=== PATIENT | female | born 1950 | race Caucasian/White ===

== ENCOUNTER 2025-03-22 21:34 | Inpatient (IN) | payer MEDICARE, MEDICAID, SELFPAY ==
[2025-03-22 21:39] VITALS: BP 107/55; PULSE 80; RESP 32; O2SAT 80
[2025-03-22 21:40] VITALS: PULSE 62; RESP 18; O2SAT 92
--- NOTE | 2025-03-22 21:45 | PD.EDRME ---
Rapid Medical Screening Exam RME Arrival date/time: 03/22/25 21:34 Chief Complaint: Syncope / Near Syncope Time Seen by Provider: 03/22/25 21:47 Vital signs: Vital Signs Pulse Rate 80 03/22/25 21:39 Respiratory Rate 32 H 03/22/25 21:39 Blood Pressure 107/55 L 03/22/25 21:39 Pulse Oximetry (%) 80 L 03/22/25 21:39 Oxygen Delivery Method Nasal Cannula 03/22/25 21:39 Oxygen Flow Rate 6 03/22/25 21:39 Vital signs reviewed by provider: No RME Narrative: 74 yo female with HX HTN, DM, Stroke, Dementia, CKD, difficulty walking, MDD, and muscle weakness presenting by EMS from [facility]. EMS reports given: GCS 14, hypotensive, syncope, and vomiting blood. Patient cool and diaphoretic. Coffee ground emesis noted on floor. O2 sats 92% on 6L O2, blood sugar 142, BP 88/50. Earlier today complained of nausea, vomiting, and lower abdominal pain. LKWT 2100. I have greeted and performed a focused initial assessment of this patient. A comprehensive ED assessment and evaluation of the patient, analysis of all test results, and completion of the medical decision making process will be conducted by additional ED providers.
--- NOTE | 2025-03-22 21:58 | EKG_ITS ---
[facility] Test Date: 2025-03-22 Pat Name: ABIGAIL ORTIZ Department: Room: - Gender: Female Mobile Pet Groomer: : 1950 Requested By: Reena Connors Order Number: [id number] Reading MD: Reena Connors Measurements Intervals [place] Rate: 91 P: 80 NH: 187 QRS: 24 QRSD: 90 T: 45 QT: 389 QTc: 479 Interpretive Statements SINUS RHYTHM LOW QRS VOLTAGE IN PRECORDIAL LEADS [QRS DEFLECTION < 1.0 mV IN CHEST LEADS] ANTERIOR MYOCARDIAL INFARCTION , OF INDETERMINATE AGE [40+ ms Q WAVE AND/OR ST/T ABNORMALITY IN V3/V4] MODERATE T-WAVE ABNORMALITY, CONSIDER LATERAL ISCHEMIA [-0.1+ mV T-WAVE IN I/aVL/V5/V6] Compared to ECG 09/25/2021 11:17:55 T-wave abnormality now present Possible ischemia now present Myocardial infarct finding still present /store/S0/[id number]/[id number]
--- NOTE | 2025-03-22 22:00 | PC.NURSE ---
BIBA FOR HYPOTENSION AND VOMITING, PT WAS AT SNF USING THE RESTROOM WHEN SHE HAD 1 EPISODE OF HEMATEMSIS AND BECAME DIAPHORETIC, COOL, AND CLAMMY. PT HAD MULTIPLE SYNCOPAL EPISODES ON TOILET. STAFF HELD PATIENT UP SO NO FALL OR TRAUMA NOTED. PER EMS WHEN ARRIVED ON SCENE PATIENT WAS NON-RESPONSIVE BUT STARTING TO COME AROUND ANY HYPOTENSIVE IN THE 80'S. PT ARRIVED ALERT AND ORIENTED TO NAME, , AND PLACE. PT STATES THAT SHE DOES NOT WANT ANY BLOOD TO BE GIVEN, HOWEVER WILL TAKE AN OXIMASK. UPON ARRIVAL TO ER PATIENTS O2 SAT 78-82% 6L, OXIMASK WAS APPLIED HOWEVER PATIENT WOULD NOT KEEP IT ON. PT C/O RIGHT LEG AND KNEE PAIN, MD MADE AWARE. PT WAITNG TO BE SEEN BY ER MD AND RN WILL CONTINUE WITH PLAN OF CARE.
--- NOTE | 2025-03-22 22:03 | PD.EDSYNC ---
ED Syncope RME/HPI General Chief Complaint: Syncope / Near Syncope Stated Complaint: SHOCK Time Seen by Provider: 03/22/25 21:47 Source: EMS Arrival date/time: 03/22/25 21:34 Mode of arrival: EMS Limitations: no limitations RME / HPI RME / HPI narrative: DR. LINDSAY?S MAIN ED EVALUATION: 74 yo female with HX HTN, DM, Stroke, Dementia, CKD, difficulty walking, MDD, and muscle weakness presenting by EMS from [facility], brought in by EMS by report the patient was sitting on the toilet and had vomited blood on EMS arrival the patient was hypotensive and? Syncope. They show coffee ground on the floor by the toilet. They report patient was cool and diaphoretic. Patient has chronic low back pain. Vitals prior to lab arrival include thank you for trying: Thank you for anything prior to that give her any fluids O2 sats 92% on 6L O2, blood sugar 142, BP 88/50. Earlier today complained of nausea, vomiting, and lower abdominal pain. LKWT 2100. Parent states prior to arrival the patient was given 100 cc normal saline. Review of the record shows shelter paperwork noted that the patient was afebrile at 97.9. Her blood pressure was 98/60. PMH: Anemia of chronic disease, chronic renal sufficiency, GERD with esophagitis, hypertension, CAD, bladder cancer, hyperlipidemia, high cholesterol, DNR comfort care only, no artificial means of nutrition. No any surgeries. 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, kidney stone, so we need to know if she is on aspirin right - PSH: -Social history: Lives in a shelter -Current medications: Related Data Home Medications ?Medication ?Instructions ?Recorded ?Confirmed amlodipine 10 mg tablet 10 mg PO QDAY 01/08/21 02/17/21 aspirin 81 mg tablet,delayed 81 mg PO QDAY 01/08/21 02/17/21 release cholecalciferol (vitamin D3) 25 1,000 unit PO QDAY 01/08/21 02/17/21 mcg (1,000 unit) capsule (Vitamin D3) citalopram 40 mg tablet 40 mg PO QDAY 01/08/21 02/17/21 cyanocobalamin (vitamin B-12) 1,000 mcg PO QDAY 01/08/21 02/17/21 1,000 mcg tablet (Vitamin B-12) ferrous sulfate 325 mg (65 mg 325 mg PO QDAY 01/08/21 02/17/21 iron) tablet hydralazine 50 mg tablet 50 mg PO QID 01/08/21 02/17/21 levothyroxine 175 mcg tablet 175 mcg PO QDAY 01/08/21 02/17/21 quetiapine 25 mg tablet 25 mg PO QPM 01/08/21 02/17/21 acetaminophen 325 mg tablet 650 mg PO Q6H PRN Pain 02/17/21 02/17/21 (Tylenol) bisacodyl 10 mg rectal suppository 10 mg WV Q72H PRN Constipation 02/17/21 02/17/21 (Dulcolax (bisacodyl)) magnesium hydroxide 400 mg/5 mL 30 ml PO Q72H PRN Constipation 02/17/21 02/17/21 oral suspension (Milk of Magnesia) sodium phosphates 19 gram-7 118 ml WV Q72H PRN Constipation 02/17/21 02/17/21 gram/118 mL enema (Fleet Enema) Previous Rx's ?Medication ?Instructions ?Recorded atorvastatin 80 mg tablet 80 mg PO QPM #30 tabs 01/12/21 levetiracetam 750 mg tablet 1,500 mg (2 x 750 mg) PO BID 01/12/21 (Keppra) seizure disorder #30 tabs phenytoin sodium extended 200 mg 200 mg PO BID #60 caps 02/20/21 capsule cephalexin 500 mg capsule 500 mg PO QID #28 caps 04/16/24 Allergies Allergy/AdvReac Type Severity Reaction Status Date / Time cashew nut Allergy Unknown Hives Verified 07/20/20 08:28 quinine Allergy Unknown Verified 07/20/20 08:28 Review of Systems Review of Systems Systems Reviewed: All systems reviewed, normal except as documented Narrative Review of Systems: Gen: No fever GI: Nausea, coffee ground vomiting, abdominal pain Neuro: Syncope Past Medical History Past Medical History NEUROLOGIC: Positive Neurological Disorders, Cerebrovascular Accident, Dementia and Seizures CARDIAC: Positive Cardiac Disorders, Coronary Artery Disease, Hypercholesterolemia and Hypertension RESPIRATORY: Positive Pneumonia GASTROINTESTINAL: Positive Gastrointestinal Disorders, Gastrointestinal Bleed, Gastroesophageal Reflux Disease and Obesity GENITOURINARY: Positive Genitourinary Disorders, Chronic Kidney Disease and Renal Disease REPRODUCTIVE: Positive Previous Pregnancies; Negative Endometriosis ENT: Positive Cataracts ENDOCRINE: Positive Endocrine Disorders, Diabetes Mellitus Type 2, Hypoglycemia and Hypothyroidism HEMATOLOGIC: Positive Blood Disorders and Anemia PSYCHO/SOCIAL: Positive Depression and Anxiety OTHER HISTORY: Positive Hospitalization, Falls, Blood Transfusions, Chemotherapy, Chicken Pox, Measles, Mumps and Cancer Family History FAMILY HISTORY: Positive Family Cancer Surgical History SURGICAL: Positive Coronary Stent and Ear Surgery Social History SMOKING STATUS: Former smoker ED Exam Narrative Physical exam: GEN. APPEARANCE: The patient is alert awake oriented X-2 in mild distress, lying down comfortably, appears chronically ill. Patient has good eye contact. Patient is cooperative. VITALS: All vitals were reviewed and the pulse ox is 80% 6L on room air which is normal according to my interpretation. HEENT: Normocephalic, atraumatic. Pupils are equal and reactive. Oral mucosa is dry ok. Patent Nares NECK: Supple CHEST: Symmetrical, atraumatic, and with equal expansion , Nontender on palpation no deformity and no crepitus. CARDIOVASCULAR: Heart regular rhythm LUNGS: Clear to auscultation bilaterally with symmetrical chest rise. No laboring tachypnea or wheezing. ABDOMEN: Soft, flat, nontender to palpation, no guarding or rebound tenderness. There are no abnormal masses palpated. EXTREMITIES: Nontender. Mild pedal edema. No cyanosis. Patient is able to move all 4 extremities well, with full ROM and good CSM. SKIN: Warm and dry, no jaundice or rashes noted. MUSCULOSKELETAL: No lumbar or midline bony tenderness. Check. Patella midline, no TTP, no ecchimosis, no swelling. NEURO: Patient is MOBLEY x 4, talking full sentences there is no focal neurologic deficits noted. Normal sensation to soft touch. PSYCHIATRIC: Patient is in normal mood and affect, cooperative, no SI or HI or hallucinations. General Limitations: Present no limitations Course Quality Measures comfort care/end of life Orders Category Date Time Status Admit to Inpatient Status Routine Admission 03/23/25 05:36 Active Patient Condition Routine Admission 03/23/25 05:34 Ordered COVID-19 Screening Questionnaire NOW Care 03/23/25 01:16 Active COVID-19 Screening Questionnaire NOW Care 03/23/25 05:36 Active Zig Zag Stitcher STAT Care 03/22/25 21:58 Active Decision to Admit X1 Care 03/23/25 01:16 Completed Decision to Admit X1 Care 03/23/25 05:35 Active EKG (ED ONLY) *Do not use* NOW Care 03/22/25 21:59 Completed NPO NOW Care 03/23/25 05:38 Active Notify provider NEEDED Care 03/23/25 05:34 Active Nurse Swallow Screen X1 Care 03/23/25 05:42 Active Sequential Compression Device QSHIFT Care 03/23/25 05:37 Active Consult to Gastroenterology Routine Cons 03/23/25 05:43 Ordered Referral Registered Dietitian Routine Cons 03/23/25 05:45 Active Diet NPO (NOW) Diet 03/23/25 05:38 Active EKG (ED Only) Stat Exams 03/22/25 21:58 Draft XR femur LT 2V Stat Exams 03/22/25 22:38 Completed XR knee limited LT 2V Stat Exams 03/22/25 22:38 Completed CBC AM DRAW Lab 03/24/25 05:00 Ordered CBC AM DRAW Lab 03/25/25 05:00 Ordered CBC AM DRAW Lab 03/26/25 05:00 Ordered CBC Stat Lab 03/22/25 22:16 Completed CBC Stat Lab 03/23/25 05:39 Ordered Comprehensive Metabolic Panel AM DRAW Lab 03/24/25 05:00 Ordered Comprehensive Metabolic Panel AM DRAW Lab 03/25/25 05:00 Ordered Comprehensive Metabolic Panel AM DRAW Lab 03/26/25 05:00 Ordered Comprehensive Metabolic Panel Stat Lab 03/22/25 22:16 Completed Comprehensive Metabolic Panel Stat Lab 03/23/25 05:40 Ordered Magnesium AM DRAW Lab 03/24/25 05:00 Ordered Magnesium AM DRAW Lab 03/25/25 05:00 Ordered Magnesium AM DRAW Lab 03/26/25 05:00 Ordered Magnesium Stat Lab 03/23/25 05:40 Ordered Partial Thromboplastin Time Stat Lab 03/22/25 22:16 Completed Phosphorous AM DRAW Lab 03/24/25 05:00 Ordered Phosphorous AM DRAW Lab 03/25/25 05:00 Ordered Phosphorous AM DRAW Lab 03/26/25 05:00 Ordered Phosphorous Stat Lab 03/23/25 05:40 Ordered Prothrombin Time with INR Stat Lab 03/22/25 22:16 Completed Troponin I Stat Lab 03/22/25 22:16 Completed Troponin I Stat Lab 03/23/25 02:02 Completed Acetaminophen Tab [Tylenol Tab] Med 03/23/25 05:37 Active 650 mg PO Q6H PRN LORazepam [Ativan Inj] Med 03/22/25 22:29 Discontinued 1 mg IVP X1 ONE Morphine Inj Med 03/22/25 22:00 Discontinued 4 mg IV X1 ONE Ondansetron Inj [Zofran Inj] Med 03/22/25 22:01 Discontinued 4 mg IV X1 ONE Pantoprazole Inj [Protonix Inj] Med 03/23/25 09:00 Ordered 40 mg IVP BID Pantoprazole Inj [Protonix Inj] Med 03/23/25 03:55 Discontinued 40 mg IVP X1 ONE Senna [Senokot] Med 03/23/25 05:37 Active 1 tab PO QDAY PRN Sodium Chloride 0.9% 500 ml [Ns] 500 ml Med 03/22/25 21:58 Discontinued IV 999 mls/hr oxyCODONE/APAP 5/325 [Percocet 5/325] Med 03/23/25 05:37 Active 1 tab PO Q6H PRN Code Status Routine Oth 03/23/25 05:34 Ordered Oxygen Delivery PRN RT 03/23/25 05:37 Active Reevaluation(s) Reevaluation #1: Knee exam s/p morphine, patient resting comfortable on 6L of O2. Time: 01:08 Vital Signs Vital signs: Vital Signs Pulse Rate 80 03/22/25 21:39 Respiratory Rate 32 H 03/22/25 21:39 Blood Pressure 107/55 L 03/22/25 21:39 Pulse Oximetry (%) 80 L 03/22/25 21:39 Oxygen Delivery Method Nasal Cannula 03/22/25 21:39 Oxygen Flow Rate 6 03/22/25 21:39 Procedures -ED EKG Interpretation #1: Date of EK03/22/25 Time of EK:16 Rate: 91 Interpretation: Interpreted by me Additional EKG comment: Sinus rhythm 91 BPM, low voltage, old anterior infarction, No ST elevation, QTc normal similar to last EKG from 04/17/24. Syncope MDM Narrative MDM Narrative:: Scribe Attestation: Dalia Hamilton, am scribing for and in the presence of Dr. Lindsay. Provider Notation: Although this document has been carefully reviewed, there may still be some phonetic and other typographical errors. These errors are purely grammatical due to imperfections in the software program and should not be construed in any way to compromise the substance of the patient's medical care during this visit. Differential diagnosis includes upper GI bleed, lower GI bleed, dehydration, electrolyte abnormality, aspiration pneumonia, sepsis. 74-year-old lady with multiple medical problems presenting to the emergency department with witnessed coffee-ground emesis with syncopal episodes while sitting on the toilet. EMS prior to arrival the patient was hypotensive. She is immediately placed in a bed and repeat vitals show that she has a BP of 115/64 with heart rate of 90. Patient is a DNR comfort care only and is pretty adamant that she does not want any blood transfusions. Plan will treat with IV fluids, pain control, and likely will need admission for pain and GI bleed. The patient meets sepsis criteria at this time secondary to her respiratory rate being 32 and slightly altered per EMS. 0533: Spoke with patient's son. Son wants further work-up to be performed, as well as further invasive studies as needed. 0600: Care signed out to the [facility] provider. Past medical, surgical, social and family history reviewed. Vitals and home medications reviewed. Results and treatment plan discussed. They will assume the care of the patient at this time and will follow the patient through admission for further work-up. Patient data External records reviewed:: [facility] previous records (Prior ED records from 04/16/24 reviewed. Patient was seen for Acute dehydration.), EMS form and [facility] records Clinical information provided by:: EMS Social determinants that could affect healthcare access:: housing ([facility]) Patient has the following chronic illnesses:: Cerebrovascular Accident, Dementia, Seizures, Coronary Artery Disease, Hypercholesterolemia, Hypertension, Gastrointestinal Bleed, Gastroesophageal Reflux Disease, Obesity, Chronic Kidney Disease and Renal Disease, Cataracts, Diabetes Mellitus Type 2, Hypoglycemia, Hypothyroidism, Anemia, Depression and Anxiety How is presenting disease/condition affected by chronic disease/condition?: exacerbated by Evaluation data The following diagnostics were reviewed and interpreted by me:: lab results, radiology exam(s) and EKG tracing(s) Lab and/or radiology exams considered but not ordered:: None Interpretation Summary: KNEE X-RAY: FINDINGS: Lateral dislocation of the patella. Severe osteopenia No acute fracture. IMPRESSION: Lateral subluxation of the patella FEMUR X-RAY: FINDINGS: Moderate to advanced left hip osteoarthritis No hip or femoral shaft fracture noted Lateral dislocation of the patellar IMPRESSION: Lateral dislocation of the patella Medications / Prescriptions Medications or Prescriptions considered but not ordered:: None Medication administrations:: Medication Administration History Acetaminophen (Acetaminophen 325 Mg Tablet) 650 mg PO Q6H PRN PRN Reason: Fever >100.3 or pain 1-3 Stop: 04/22/25 05:36 Oxycodone/Acetaminophen (Oxycodone/Apap 5/325 Tablet) 1 tab PO Q6H PRN PRN Reason: PAIN SCALE 4-6 (Moderate Stop: 03/28/25 05:36 Pantoprazole Sodium (Pantoprazole Inj 40 Mg Vial) 40 mg IVP BID CHARLES Stop: 04/22/25 08:59 Sennosides (Senna Tablet) 1 tab PO QDAY PRN; Protocol PRN Reason: constipation Stop: 04/22/25 05:36 Discontinued Medications Sodium Chloride (Ns) 500 mls @ 999 mls/hr IV .Q31M ONE Stop: 03/22/25 22:28 Last Infusion: 03/22/25 22:41 Dose: Infused Documented By: Admin: 03/22/25 22:14 Dose: 999 mls/hr Documented By: BETHEL Lorazepam (Lorazepam 2 Mg/Ml Vial) 1 mg IVP X1 ONE Stop: 03/22/25 22:30 Last Admin: 03/22/25 22:34 Dose: 1 mg Documented By: BETHEL Morphine Sulfate (Morphine Sulf Inj 10 Mg/Ml Vial) 4 mg IV X1 ONE Stop: 03/22/25 22:01 Last Admin: 03/22/25 22:12 Dose: 4 mg Documented By: BETHEL Ondansetron HCl (Ondansetron Inj 2 Mg/Ml Inj 2 Ml) 4 mg IV X1 ONE Stop: 03/22/25 22:02 Last Admin: 03/22/25 22:13 Dose: 4 mg Documented By: BETHEL Pantoprazole Sodium (Pantoprazole Inj 40 Mg Vial) 40 mg IVP X1 ONE Stop: 03/23/25 03:56 Last Admin: 03/23/25 04:01 Dose: 40 mg Documented By: BD See above if any Consultations Consultation(s) initiated? (list below): Yes Consultation #1 (Physician, Specialty, Details): Case d/w resident for hospitalist, Dr. Fuentes, who was made aware of the patient?s HPI, PMHx, lab and/or radiology results. Treatment plan was discussed. Will admit for further evaluation and management. Time: 01:11 Consultation #2 (Physician, Specialty, Details): Attending came down reviewed Hx and PE and at this time will await second troponin, but at this time doesn?t not feel patient will benefit from admission. Pending second Troponin and speaking with patient?s son. Time: 02:00 Consultation #3 (Physician, Specialty, Details): Case d/w resident for hospitalist, Dr. Fuentes, who was made aware of the patient?s HPI, PMHx, lab and/or radiology results. Treatment plan was discussed. Will admit for further evaluation and management. Accepts patient for admission. Time: 05:33 Diagnosis Syncope Differential Diagnosis: other (GI bleed, sepsis, arrhythmia, dehydration) Most likely diagnosis given after review of the tests above:: Syncope, Upper GI bleed, elevated troponin, Chronic Renal Insufficiency, Hx of High cholesterol, Hx of Hypertension, Non-STEMI Admission Indicated Admission indicated?: indicated Explain why admission is indicated or not indicated:: Elevated Troponin, Non-STEMI Admission Request Was there a request for admission?: Yes Admission Attestation Admission request attestation: Discussed case with [] from Hospitalist service regarding admission. Discussed patients ED course, exam findings, labs, and radiology results. The Hospitalist [agrees,declines] to accept the patient for admission. Disposition Plan Disposition Plan: Admit Discharge Plan Plan Patient Disposition: HOME (Self Care) Patient condition on transfer: Stable Prescriptions/Referrals Prescriptions/Med Rec: No Action acetaminophen [Tylenol] 325 mg Tablet 650 mg PO Q6H PRN (Reason: Pain) magnesium hydroxide [Milk of Magnesia] 400 mg/5 mL Suspension 30 ml PO Q72H PRN (Reason: Constipation) bisacodyl [Dulcolax (bisacodyl)] 10 mg Suppository 10 mg WV Q72H PRN (Reason: Constipation) Fleet Enema 19-7 gram/118 mL Enema 118 ml WV Q72H PRN (Reason: Constipation) phenytoin sodium extended 200 mg capsule 200 mg PO BID Qty: 60 0RF levothyroxine 175 mcg tablet 175 mcg PO QDAY Patient Comments: TAKE 1 TABLET BY MOUTH EVERY DAY BEFORE BREAKFAST ORALLY hydralazine 50 mg tablet 50 mg PO QID Patient Comments: TAKE 1 TABLET BY MOUTH WITH FOOD FOUR TIMES A DAY FOR 90 DAYS quetiapine 25 mg tablet 25 mg PO QPM Patient Comments: TAKE 1 TABLET BY MOUTH EVERY DAY IN THE EVENING citalopram 40 mg tablet 40 mg PO QDAY Patient Comments: TAKE 1 TABLET BY MOUTH EVERY DAY cyanocobalamin (vitamin B-12) [Vitamin B-12] 1,000 mcg Tablet 1,000 mcg PO QDAY aspirin 81 mg Tablet,Delayed Release (Dr/Ec) 81 mg PO QDAY amlodipine 10 mg tablet 10 mg PO QDAY Patient Comments: TAKE 1 TABLET BY MOUTH EVERY DAY ferrous sulfate 325 mg (65 mg iron) Tablet 325 mg PO QDAY cholecalciferol (vitamin D3) [Vitamin D3] 25 mcg (1,000 unit) Capsule 1,000 unit PO QDAY atorvastatin 80 mg tablet 80 mg PO QPM Qty: 30 0RF levetiracetam [Keppra] 750 mg tablet 1,500 mg PO BID Qty: 30 0RF cephalexin 500 mg capsule 500 mg PO QID Qty: 28 0RF Problem List Clinical Impression: Syncope, Elevated troponin, History of hypertension, History of high cholesterol, Upper gastrointestinal bleed, Non-STEMI (non-ST elevated myocardial infarction) Patient/Caregiver Discharge Instructions Additional Instructions: I looked at it early on like telling you to change your mind and discomfort that admission Print Language: Japanese Stand Alone Forms: [facility] Award Info., Patient Portal Info Letter
[2025-03-22] MEDS: MORPHINE SULF INJ 10 MG/ML VIAL 4 MG IV (22:12)
[2025-03-22] MEDS: ONDANSETRON INJ 2 MG/ML INJ 2 ML 4 MG IV (22:13)
[2025-03-22] MEDS: SODIUM CHLORIDE 0.9% 500 ML 500 ML 999 ML IV (22:14)
[2025-03-22 22:18] VITALS: BP 115/64; PULSE 75; PULSE 93; RESP 25; O2SAT 90
[2025-03-22] MEDS: LORazepam 2 MG/ML VIAL 1 MG IVP (22:34)
--- NOTE | 2025-03-22 22:38 | XR_ITS ---
Examination: AP lateral knee 2 views TECHNIQUE: AP, lateral portable left knee 2 views EXAMINATION: Clinical 16/05/2025 10:57 PM INDICATIONS: Onset knee pain today. FINDINGS: Lateral dislocation of the patella. Severe osteopenia No acute fracture. IMPRESSION: Lateral subluxation of the patella
--- NOTE | 2025-03-22 22:38 | XR_ITS ---
Examination: Left femur 2 views TECHNIQUE: AP lateral left femur 2 views Same date and time: March 22, 2025 1103 hours INDICATIONS: Patient fell today with injury to the femur, femur pain. FINDINGS: Moderate to advanced left hip osteoarthritis No hip or femoral shaft fracture noted Lateral dislocation of the patellar IMPRESSION: Lateral dislocation of the patella
[2025-03-22 22:43] LABS: Basophils % (Auto) 0 % (0-2.5); Eosinophils % (Auto) 0 % (0-10); Hematocrit 36.2 % (36.0-46.0); Hemoglobin 11.2 g/dL (12.0-16.0); Immature Granulocytes % (Auto) 1 % (0-0); Immature Granulocytes Auto 0.05 Thou/mm3 (0.00-0.00); Lymphocytes # (Auto) 3.1 Thou/mm3 (1.0-4.8); Lymphocytes % (Auto) 28 % (10-50); Mean Corpuscular HGB Conc 30.9 g/dl (31.0-37.0); Mean Corpuscular Hemoglobin 27.7 pg (25.0-35.0); Mean Corpuscular Volume 89 fL (80-100); Monocytes # (Auto) 0.6 Thou/mm3 (0.0-0.8); Monocytes % (Auto) 5 % (0-12); Neutrophils # (Auto) 7.3 Thou/mm3 (1.8-7.7); Neutrophils % (Auto) 66 % (37-80); Nucleated Red Blood Cell % 0 /100 WBC (0); Platelet Count 250 Thou/mm3 (140-440); RDW Standard Deviation 46.5 fL (36.4-46.3); Red Blood Count 4.05 Miln/mm3 (4.00-5.20); White Blood Count 11.1 Thou/mm3 (3.6-11.0)
[2025-03-22 22:50] LABS: INR 1.1 (0.9-1.3); Partial Thromboplastin Time 25.8 Seconds (22.0-36.0); Prothrombin Time 11.9 Seconds (9.0-12.2)
[2025-03-22 23:06] LABS: Alanine Aminotransferase < 7 U/L (10-49); Albumin, Serum 3.4 gm/dL (3.4-4.8); Albumin/Globulin Ratio 0.9 (1.2-2.2); Alkaline Phosphatase 130 U/L (46-116); Anion Gap 10 (7-16); Aspartate Amino Transferase 13 U/L (0-34); BUN/Creatinine Ratio 14 Ratio (12-20); Bilirubin,Total 0.2 mg/dL (0.3-1.2); Blood Urea Nitrogen 20 mg/dL (9-23); Calcium (Corrected) 9.5 mg/dL (8.5-10.1); Carbon Dioxide 22.8 mMol/L (20.0-31.0); Chloride 110 mMol/L (98-107); Creatinine (Component) 1.4 mg/dL (0.6-1.3); Globulin 3.6 gm/dL (2.3-3.5); Glucose 185 mg/dL (74-106); Osmolality,Calculated 292 (275-295); Potassium 4.2 mMol/L (3.4-5.1); Sodium 143 mMol/L (136-145); eGFR 39 See Note
[2025-03-22 23:11] LABS: Troponin I 1.608 ng/mL (0.0-0.045)
[2025-03-23] VITALS (11 sets, daily range): BP systolic 135–178; BP diastolic 77–104; PULSE 85–114; RESP 18–40; TEMP 36–37.2; O2SAT 92–98; BMI 31.9
--- NOTE | 2025-03-23 03:00 | PD.RESHP ---
Documentation for date of: 03/23/25 [facility] History of Present Illness Chief complaint: coffee-ground emesis History of present illness: The patient is a 74-year-old female with a previous medical history of dementia, history of stroke with right-sided hemiparesis, type 2 diabetes, hypertension, CKD, CAD, bladder cancer s/p resection and urostomy, seizure disorder who was brought in by ambulance from [facility] due to hematemesis and syncope. Due to the dementia, most of the history was gathered through the chart review. ED course: Blood pressure 135/89, heart rate 90, respiratory rate 27, saturating 92% on nasal cannula 6 L. Labs were significant for hemoglobin 11.2 (previous hemoglobin in March 2024 9.9), WBC 11.1, platelets 250, INR 1.1, sodium 144, potassium 4.2, chloride 110, carbon dioxide 22.8, BUN 20, creatinine 1.4, glucose 185, troponin initially 1.608?down trended to 1.040, alkaline phosphatase 130. Imaging showed lateral subluxation of the patella. EKG showed sinus rhythm. Documents from the SNF include signed POLST form with DNI/DNR and comfort measures. Her son, who is the decision-maker was not available by the phone. Internal medicine team was consulted for suspected GI bleed and possible NSTEMI. Review of Systems Review of Systems ROS Unobtainable: unobtainable due to mental status Past Medical History Past Medical History NEUROLOGIC: Positive Neurological Disorders, Cerebrovascular Accident, Dementia and Seizures CARDIAC: Positive Cardiac Disorders, Coronary Artery Disease, Hypercholesterolemia and Hypertension RESPIRATORY: Positive Pneumonia GASTROINTESTINAL: Positive Gastrointestinal Disorders, Gastrointestinal Bleed, Gastroesophageal Reflux Disease and Obesity GENITOURINARY: Positive Genitourinary Disorders, Chronic Kidney Disease and Renal Disease REPRODUCTIVE: Positive Previous Pregnancies; Negative Endometriosis ENT: Positive Cataracts ENDOCRINE: Positive Endocrine Disorders, Diabetes Mellitus Type 2, Hypoglycemia and Hypothyroidism HEMATOLOGIC: Positive Blood Disorders and Anemia PSYCHO/SOCIAL: Positive Depression and Anxiety OTHER HISTORY: Positive Hospitalization, Falls, Blood Transfusions, Chemotherapy, Chicken Pox, Measles, Mumps and Cancer Family History FAMILY HISTORY: Positive Family Cancer Surgical History SURGICAL: Positive Coronary Stent and Ear Surgery Social History SMOKING STATUS: Former smoker Exam Vital Signs Pulse Resp BP Pulse Ox O2 Del Method O2 Flow Rate 90 27 H 135/89 H 92 L Nasal Cannula 6 03/23/25 00:10 03/23/25 00:10 03/23/25 00:10 03/23/25 00:10 03/23/25 00:10 03/23/25 00:10 Narrative Exam Physical Exam General: Sleeping, easily awakes. HEENT: Normocephalic, atraumatic, mucous membranes moist. Heart: Regular rate and rhythm, no murmurs. Lungs: Clear to auscultation with no wheezing or crackles. Abdomen: Soft, nondistended, nontender, positive bowel sounds. ?No guarding or rebound tenderness. Urostomy are unremarkable. Neurologic: Alert and oriented x1, right sided hemiparesis. Extremities: No edema. Skin: No rash or ecchymoses. Results: Labs 03/22/25 22:16 03/22/25 22:16 Labs: Short CBC 03/22/25 Range/Units 22:16 WBC 11.1 H (3.6-11.0) Thou/mm3 Hgb 11.2 L (12.0-16.0) g/dL Hct 36.2 (36.0-46.0) % Plt Count 250 (140-440) Thou/mm3 BMP 03/22/25 22:16 Sodium 143 Potassium 4.2 Chloride 110 H Carbon Dioxide 22.8 BUN 20 Creatinine 1.4 H Glucose 185 H Calcium 9.0 Cardiac Enzymes 03/22/25 03/23/25 Range/Units 22:16 02:02 Troponin I 1.608 H* 1.040 H* D (0.0-0.045) ng/mL Liver Function 03/22/25 Range/Units 22:16 Total Bilirubin 0.2 L (0.3-1.2) mg/dL AST 13 (0-34) U/L ALT < 7 L (10-49) U/L Alkaline Phosphatase 130 H (46-116) U/L Albumin 3.4 (3.4-4.8) gm/dL Quality Measures Quality Measures comfort care/end of life Medications Home Medications and Allergies Home Medications ?Medication ?Instructions ?Recorded ?Confirmed ?Type amlodipine 10 mg tablet 10 mg PO QDAY 01/08/21 02/17/21 History aspirin 81 mg tablet,delayed 81 mg PO QDAY 01/08/21 02/17/21 History release cholecalciferol (vitamin D3) 25 1,000 unit PO QDAY 01/08/21 02/17/21 History mcg (1,000 unit) capsule (Vitamin D3) citalopram 40 mg tablet 40 mg PO QDAY 01/08/21 02/17/21 History cyanocobalamin (vitamin B-12) 1,000 mcg PO QDAY 01/08/21 02/17/21 History 1,000 mcg tablet (Vitamin B-12) ferrous sulfate 325 mg (65 mg 325 mg PO QDAY 01/08/21 02/17/21 History iron) tablet hydralazine 50 mg tablet 50 mg PO QID 01/08/21 02/17/21 History levothyroxine 175 mcg tablet 175 mcg PO QDAY 01/08/21 02/17/21 History quetiapine 25 mg tablet 25 mg PO QPM 01/08/21 02/17/21 History acetaminophen 325 mg tablet 650 mg PO Q6H PRN Pain 02/17/21 02/17/21 History (Tylenol) bisacodyl 10 mg rectal suppository 10 mg NE Q72H PRN Constipation 02/17/21 02/17/21 History (Dulcolax (bisacodyl)) magnesium hydroxide 400 mg/5 mL 30 ml PO Q72H PRN Constipation 02/17/21 02/17/21 History oral suspension (Milk of Magnesia) sodium phosphates 19 gram-7 118 ml NE Q72H PRN Constipation 02/17/21 02/17/21 History gram/118 mL enema (Fleet Enema) Allergies Allergy/AdvReac Type Severity Reaction Status Date / Time cashew nut Allergy Unknown Hives Verified 07/20/20 08:28 quinine Allergy Unknown Verified 07/20/20 08:28 Visit Medications Discontinued Medications Sodium Chloride (Ns) 500 mls @ 999 mls/hr IV .Q31M ONE Stop: 03/22/25 22:28 Last Infusion: 03/22/25 22:41 Dose: Infused Lorazepam (Lorazepam 2 Mg/Ml Vial) 1 mg IVP X1 ONE Stop: 03/22/25 22:30 Last Admin: 03/22/25 22:34 Dose: 1 mg Morphine Sulfate (Morphine Sulf Inj 10 Mg/Ml Vial) 4 mg IV X1 ONE Stop: 03/22/25 22:01 Last Admin: 03/22/25 22:12 Dose: 4 mg Ondansetron HCl (Ondansetron Inj 2 Mg/Ml Inj 2 Ml) 4 mg IV X1 ONE Stop: 03/22/25 22:02 Last Admin: 03/22/25 22:13 Dose: 4 mg
--- NOTE | 2025-03-23 03:13 | ESCONSULT_ITS ---
HPI Data of Consult Primary Care Provider: Reina Saldivar MD ([facility]) Consult Narrative Reason for consult: cofee-ground emesis History of present illness: The patient is a 74-year-old female with a previous medical history of dementia, history of stroke with right-sided hemiparesis, type 2 diabetes, hypertension, CKD, CAD, bladder cancer s/p resection and urostomy, seizure disorder who was brought in by ambulance from [facility] due to hematemesis and syncope. Due to the dementia, most of the history was gathered through the chart review. ED course: Blood pressure 135/89, heart rate 90, respiratory rate 27, saturating 92% on nasal cannula 6 L. Labs were significant for hemoglobin 11.2 (previous hemoglobin in March 2024 9.9), WBC 11.1, platelets 250, INR 1.1, sodium 144, potassium 4.2, chloride 110, carbon dioxide 22.8, BUN 20, creatinine 1.4, glucose 185, troponin initially 1.608?down trended to 1.040, alkaline phosphatase 130. Imaging showed lateral subluxation of the patella. EKG showed sinus rhythm. Documents from the SNF include signed POLST form with DNI/DNR and comfort measures. Her son, who is the decision-maker was not available by the phone. Internal medicine team was consulted for suspected GI bleed and possible NSTEMI. cc:: cc: Review of Systems Review of Systems ROS Unobtainable: unobtainable due to mental status Past Medical History Past Medical History NEUROLOGIC: Positive Neurological Disorders, Cerebrovascular Accident, Dementia and Seizures CARDIAC: Positive Cardiac Disorders, Coronary Artery Disease, Hypercholesterolemia and Hypertension RESPIRATORY: Positive Pneumonia GASTROINTESTINAL: Positive Gastrointestinal Disorders, Gastrointestinal Bleed, Gastroesophageal Reflux Disease and Obesity GENITOURINARY: Positive Genitourinary Disorders, Chronic Kidney Disease and Renal Disease REPRODUCTIVE: Positive Previous Pregnancies; Negative Endometriosis ENT: Positive Cataracts ENDOCRINE: Positive Endocrine Disorders, Diabetes Mellitus Type 2, Hypoglycemia and Hypothyroidism HEMATOLOGIC: Positive Blood Disorders and Anemia PSYCHO/SOCIAL: Positive Depression and Anxiety OTHER HISTORY: Positive Hospitalization, Falls, Blood Transfusions, Chemotherapy, Chicken Pox, Measles, Mumps and Cancer Family History FAMILY HISTORY: Positive Family Cancer Surgical History SURGICAL: Positive Coronary Stent and Ear Surgery Social History SMOKING STATUS: Former smoker Exam Vital Signs Pulse Resp BP Pulse Ox O2 Del Method O2 Flow Rate 90 27 H 135/89 H 92 L Nasal Cannula 6 04/27/25 00:10 03/23/25 00:10 03/23/25 00:10 03/23/25 00:10 03/23/25 00:10 03/23/25 00:10 Narrative Exam General: Sleeping, easily awakes. HEENT: Normocephalic, atraumatic, mucous membranes moist. Heart: Regular rate and rhythm, no murmurs. Lungs: Clear to auscultation with no wheezing or crackles. Abdomen: Soft, nondistended, nontender, positive bowel sounds. No guarding or rebound tenderness. Urostomy are unremarkable. Neurologic: Alert and oriented x1, right sided hemiparesis. Extremities: 1+ tibial edema. Skin: No rash or ecchymoses. Results Labs 03/22/25 22:16 03/22/25 22:16 Labs: Short CBC 03/22/25 Range/Units 22:16 WBC 11.1 H (3.6-11.0) Thou/mm3 Hgb 11.2 L (12.0-16.0) g/dL Hct 36.2 (36.0-46.0) % Plt Count 250 (140-440) Thou/mm3 BMP 03/22/25 22:16 Sodium 143 Potassium 4.2 Chloride 110 H Carbon Dioxide 22.8 BUN 20 Creatinine 1.4 H Glucose 185 H Calcium 9.0 Cardiac Enzymes 03/22/25 03/23/25 Range/Units 22:16 02:02 Troponin I 1.608 H* 1.040 H* D (0.0-0.045) ng/mL Liver Function 03/22/25 Range/Units 22:16 Total Bilirubin 0.2 L (0.3-1.2) mg/dL AST 13 (0-34) U/L ALT < 7 L (10-49) U/L Alkaline Phosphatase 130 H (46-116) U/L Albumin 3.4 (3.4-4.8) gm/dL Quality Measures Quality Measures comfort care/end of life Advance care planning discussed with:: other (POLST form) Medications Home Medications and Allergies Home Medications ?Medication ?Instructions ?Recorded ?Confirmed ?Type amlodipine 10 mg tablet 10 mg PO QDAY 01/08/2102/17 History aspirin 81 mg tablet,delayed 81 mg PO QDAY 01/08/21 History release cholecalciferol (vitamin D3) 25 1,000 unit PO QDAY 11/1602/17/21 History mcg (1,000 unit) capsule (Vitamin D3) citalopram 40 mg tablet 40 mg PO QDAY 01/08/2102/17 History cyanocobalamin (vitamin B-12) 1,000 mcg PO QDAY 02/17/21 History 1,000 mcg tablet (Vitamin B-12) ferrous sulfate 325 mg (65 mg 325 mg PO QDAY 01/08/21 02/17/21 History iron) tablet hydralazine 50 mg tablet 50 mg PO QID 01/08/21 History levothyroxine 175 mcg tablet 175 mcg PO QDAY 01/08/21 02/17/21 History quetiapine 25 mg tablet 25 mg PO QPM 01/08/21 History acetaminophen 325 mg tablet 650 mg PO Q6H PRN Pain 02/17/21 History (Tylenol) bisacodyl 10 mg rectal suppository 10 mg SC Q72H PRN C onstipation 02/17/21 02/17/21 History (Dulcolax (bisacodyl)) magnesium hydroxide 400 mg/5 mL 30 ml PO Q72H PRN Cons tipation 02/17/21 02/17/21 History oral suspension (Milk of Magnesia) sodium phosphates 19 gram-7 118 ml SC Q72H PRN Constip ation 02/17/21 02/17/21 History gram/118 mL enema (Fleet Enema) Allergies Allergy/AdvReac Type Severity Reaction Status Date / Time cashew nut Allergy Unknown Hives Verified 07/20/20 08:28 quinine Allergy Unknown Verified 07/20/20 08:28 Visit Medications Discontinued Medications Sodium Chloride (Ns) 500 mls @ 999 mls/hr IV .Q31M ONE Stop: 03/22/25 22:28 Last Infusion: 03/22/25 22:41 Dose: Infused Lorazepam (Lorazepam 2 Mg/Ml Vial) 1 mg IVP X1 ONE Stop: 03/22/25 22:30 Last Admin: 03/22/25 22:34 Dose: 1 mg Morphine Sulfate (Morphine Sulf Inj 10 Mg/Ml Vial) 4 mg IV X1 ONE Stop: 03/22/25 22:01 Last Admin: 03/22/25 22:12 Dose: 4 mg Ondansetron HCl (Ondansetron Inj 2 Mg/Ml Inj 2 Ml) 4 mg IV X1 ONE Stop: 03/22/25 22:02 Last Admin: 03/22/25 22:13 Dose: 4 mg Assessment & Plan Plan The patient is a 74-year-old female with a previous medical history of dementia, history of stroke with right-sided hemiparesis, type 2 diabetes, hypertension, CKD, CAD, bladder cancer s/p resection and urostomy, seizure disorder who was brought in by ambulance from [facility] due to hematemesis and syncope. Internal medicine team was consulted for suspected GI bleed and possible NSTEMI. #Suspected GI bleed Patient had coffee-ground emesis earlier. Right now hemoglobin 11.2. There is no need for blood transfusion for now. Patient refused blood transfusions in case they are needed. Patient is DNR/DNI with comfort measures. We will respect the patient's decision and will not proceed with invasive workup for GI bleed like EGD. Patient's son was unavailable for conversation at this time. Plan: ? Protonix 40 mg twice daily for 4 weeks ? Comfort measures as needed - will recommend to try to get in touch with son to discuss plan of care #Non-STEMI, likely type II #Elevated troponin #History of CAD, status post PCI Most likely due to demand ischemia in the setting of GI bleed. Troponin initially 1.608?down trended to 1.040. EKG showed sinus rhythm. Patient does not report chest pain. Plan: ? Due to suspected GI bleed anticoagulation is contraindicated at this point ? Due to patient being DNR/DNI with comfort measures will not pursue invasive workup at this point #Left patellar subluxation Most likely due to trauma during syncope. Patient denies pain. Plan: - pain control as needed #REYNOLD on CKD versus progression of CKD Patient received 500 cc of IV fluid in the ED #History of dementia #History of stroke #Type 2 diabetes #Hypertension #CKD #Bladder cancer s/p resection and urostomy #Seizure disorder Plan: ? Continue current management Plan of care discussed with attending Dr. Fuentes. Laquita Garcia MD, PGY 1. Attending Provider Attestation/Addendum I attest that I was physically present for the evaluation, physical examination, lab and imaging review of the patient with the residents. I discussed the case with the residents and agree with the findings and plans of care as documented above. Patient is a 74 years old female with past medical history of dementia, stroke with right-sided hemiparesis, type 2 diabetes mellitus, hypertension, CKD, CAD, bladder cancer s/p resection and urostomy, seizure disorder who presented to the ED from [facility] with complaint of hematemesis and syncope. Patient has dementia and is unable to provide appropriate history, HPI completed with help of chart review. In the ED, patient had soft blood pressure initially 88/50, she was saturating at 92% on 6 L nasal cannula. Lab results were significant for hemoglobin of 11.2, improved from 9.9 compared to her last visit, WBC 11.1, CO2 22.8, creatinine 1.4, glucose 185, troponin 1.608 which later down trended to 1.040. EKG showed sinus rhythm without ST changes. On exam, patient appears sleepy but easily arousable on calling. Oriented x 1, unable to provide history. Lungs are clear to auscultate, abdomen is nontender on palpation. Hospitalist team was consulted for possible admission for workup of GI bleeding, elevated troponin. Patient has a POLST form signed by patient's son stating patient is a DNR/DNI, and wants comfort focused treatment only, no invasive treatment/artificial feeding. Discussed with ED attending, resident team, patient's RN regarding further management of patient. Discussed about the concern that admitting patient and starting invasive GI workup, cardiac workup, lab draws, sleep disruption with frequent monitoring will be against the wishes of comfort focused treatment. Agreed that, it might be reasonable to wait until the morning and try to reach out to patient's son to clarify about the goals of care and decision on admission. #Suspected GI bleed Ordered Protonix 40 mg x 1 Recommended to continue with Protonix 40 twice daily #Elevated troponin, likely type II Patient had initial troponin of 1.608, down trended to 1.[address] changes #Left patellar subluxation Continue oral pain regimen as needed #REYNOLD on CKD versus progression of CKD Patient received 500 cc of IV fluid in the ED Rhianna Fuentes MD
--- NOTE | 2025-03-23 03:30 | PC.NURSE ---
MULTIPLE ATTEMPTS MADE BY RN AND HOSPITALIST TO CONTACT SON REGARDING CLARIFICATION OF POLST BUT NO ANSWER
[2025-03-23] MEDS: PANTOPRAZOLE INJ 40 MG VIAL IVP ×3 (04:01→21:54)
--- NOTE | 2025-03-23 05:15 | PC.NURSE ---
THIS RN WAS ABLE TO GET A HOLD OF SON, AND ADVISED HIM OF PATIENT STATUS AND NEEDING CLARIFICATION OF POLST THAT STATES DNR COMFORT MEASURES ONLY. NEEDED TO KNOIW WHETHER SON WOULD LIKE HER SENT BACK TO FACILITY OR ADMITTED FOR FURTHER WORK BASED UPON FINDINGS IN ER. SON ASHLEY STATES THAT HE WOULD LIKE PATIENT TO BE ADMITTED AND WORKED UP FOR FURTHER CARE. HOSPITALIST TEAM WAS ADVISED OF PHONE CALL AND DECISION FOR ADMIT
--- NOTE | 2025-03-23 05:44 | PD.RESHP ---
Documentation for date of: 03/23/25 [facility] History of Present Illness Chief complaint: coffee-ground emesis History of present illness: The patient is a 74-year-old female with a previous medical history of dementia, history of stroke with right-sided hemiparesis, type 2 diabetes, hypothyroidism, hypertension, CKD, CAD, bladder cancer s/p resection and urostomy, seizure disorder who was brought in by ambulance from [facility] due to hematemesis and syncope. Due to the dementia, most of the history was gathered through the chart review. ED course: Blood pressure 135/89, heart rate 90, respiratory rate 27, saturating 92% on nasal cannula 6 L. Labs were significant for hemoglobin 11.2 (previous hemoglobin in March 2024 9.9), WBC 11.1, platelets 250, INR 1.1, sodium 144, potassium 4.2, chloride 110, carbon dioxide 22.8, BUN 20, creatinine 1.4, glucose 185, troponin initially 1.608?down trended to 1.040, alkaline phosphatase 130. Imaging showed lateral subluxation of the patella. EKG showed sinus rhythm. Documents from the SNF include signed POLST form with DNI/DNR and comfort measures. Her son, who is the decision-maker was not available by the phone initially. ED Physician Dr. Hernandez spoke with patient's son who reported that he would like to treat the patient and admit her to the hospital. Patient is going to be admitted for upper GI bleed and NSTEMI treatment and management. Social history: SNF resident, former smoker Review of Systems Review of Systems ROS Unobtainable: unobtainable due to mental status Past Medical History Past Medical History NEUROLOGIC: Positive Neurological Disorders, Cerebrovascular Accident, Dementia and Seizures CARDIAC: Positive Cardiac Disorders, Coronary Artery Disease, Hypercholesterolemia and Hypertension RESPIRATORY: Positive Pneumonia GASTROINTESTINAL: Positive Gastrointestinal Disorders, Gastrointestinal Bleed, Gastroesophageal Reflux Disease and Obesity GENITOURINARY: Positive Genitourinary Disorders, Chronic Kidney Disease and Renal Disease REPRODUCTIVE: Positive Previous Pregnancies; Negative Endometriosis ENT: Positive Cataracts ENDOCRINE: Positive Endocrine Disorders, Diabetes Mellitus Type 2, Hypoglycemia and Hypothyroidism HEMATOLOGIC: Positive Blood Disorders and Anemia PSYCHO/SOCIAL: Positive Depression and Anxiety OTHER HISTORY: Positive Hospitalization, Falls, Blood Transfusions, Chemotherapy, Chicken Pox, Measles, Mumps and Cancer Family History FAMILY HISTORY: Positive Family Cancer Surgical History SURGICAL: Positive Coronary Stent and Ear Surgery Social History SMOKING STATUS: Former smoker Exam Vital Signs Pulse Resp BP Pulse Ox O2 Del Method O2 Flow Rate 85 31 H 155/79 H 92 L Nasal Cannula 6 03/23/25 04:38 03/23/25 04:38 03/23/25 03:00 03/23/25 04:38 03/23/25 04:38 03/23/25 04:38 Narrative Exam General: Sleeping, easily awakes. HEENT: Normocephalic, atraumatic, mucous membranes moist. Heart: Regular rate and rhythm, no murmurs. Lungs: Clear to auscultation with no wheezing or crackles. Abdomen: Soft, nondistended, nontender, positive bowel sounds. No guarding or rebound tenderness. Urostomy site is unremarkable. Neurologic: Alert and oriented x1, right sided hemiparesis. Extremities: 1+ tibial edema. Skin: No rash or ecchymoses. Results: Labs 03/23/25 06:05 03/23/25 06:05 Labs: Short CBC 03/22/25 Range/Units 22:16 WBC 11.1 H (3.6-11.0) Thou/mm3 Hgb 11.2 L (12.0-16.0) g/dL Hct 36.2 (36.0-46.0) % Plt Count 250 (140-440) Thou/mm3 BMP 03/22/25 22:16 Sodium 143 Potassium 4.2 Chloride 110 H Carbon Dioxide 22.8 BUN 20 Creatinine 1.4 H Glucose 185 H Calcium 9.0 Cardiac Enzymes 03/22/25 03/23/25 Range/Units 22:16 02:02 Troponin I 1.608 H* 1.040 H* D (0.0-0.045) ng/mL Liver Function 03/22/25 Range/Units 22:16 Total Bilirubin 0.2 L (0.3-1.2) mg/dL AST 13 (0-34) U/L ALT < 7 L (10-49) U/L Alkaline Phosphatase 130 H (46-116) U/L Albumin 3.4 (3.4-4.8) gm/dL Quality Measures Quality Measures VTE prophylaxis Advance care planning discussed with:: other Medications Home Medications and Allergies Home Medications ?Medication ?Instructions ?Recorded ?Confirmed ?Type amlodipine 10 mg tablet 10 mg PO QDAY 01/08/21 03/23/25 History aspirin 81 mg tablet,delayed 81 mg PO QDAY 01/08/21 03/23/25 History release cholecalciferol (vitamin D3) 25 1,000 unit PO QDAY 01/08/21 02/17/21 History mcg (1,000 unit) capsule (Vitamin D3) citalopram 40 mg tablet 40 mg PO QDAY 01/08/21 02/17/21 History cyanocobalamin (vitamin B-12) 1,000 mcg PO QDAY 01/08/21 02/17/21 History 1,000 mcg tablet (Vitamin B-12) ferrous sulfate 325 mg (65 mg 325 mg PO QDAY 01/08/21 03/23/25 History iron) tablet hydralazine 50 mg tablet 50 mg PO QID 01/08/21 03/23/25 History levothyroxine 175 mcg tablet 200 mcg PO QDAY 01/08/21 03/23/25 History quetiapine 25 mg tablet 25 mg PO QPM 01/08/21 02/17/21 History acetaminophen 325 mg tablet 650 mg PO Q6H PRN Pain 02/17/21 03/23/25 History (Tylenol) bisacodyl 10 mg rectal suppository 10 mg IN Q72H PRN Constipation 02/17/21 03/23/25 History (Dulcolax (bisacodyl)) magnesium hydroxide 400 mg/5 mL 30 ml PO Q72H PRN Constipation 02/17/21 02/17/21 History oral suspension (Milk of Magnesia) sodium phosphates 19 gram-7 118 ml IN Q72H PRN Constipation 02/17/21 02/17/21 History gram/118 mL enema (Fleet Enema) citalopram 10 mg tablet (Celexa) 10 mg PO QDAY 03/23/25 03/23/25 History cyanocobalamin (vitamin B-12) 1,000 mcg PO QDAY 03/23/25 03/23/25 History 1,000 mcg capsule divalproex 250 mg tablet,delayed 250 mg PO BID 03/23/25 03/23/25 History release (Depakote) memantine 5 mg tablet 5 mg PO HS 03/23/25 03/23/25 History phenytoin sodium extended 200 mg 100 mg PO BID 03/23/25 03/23/25 History capsule Allergies Allergy/AdvReac Type Severity Reaction Status Date / Time cashew nut Allergy Unknown Hives Verified 07/20/20 08:28 quinine Allergy Unknown Verified 07/20/20 08:28 iodine Allergy Verified 03/23/25 06:27 Visit Medications Acetaminophen (Acetaminophen 325 Mg Tablet) 650 mg PO Q6H PRN PRN Reason: Fever >100.3 or pain 1-3 Stop: 04/22/25 05:36 Oxycodone/Acetaminophen (Oxycodone/Apap 5/325 Tablet) 1 tab PO Q6H PRN PRN Reason: PAIN SCALE 4-6 (Moderate Stop: 03/28/25 05:36 Pantoprazole Sodium (Pantoprazole Inj 40 Mg Vial) 40 mg IVP BID CHARLES Stop: 04/22/25 08:59 Sennosides (Senna Tablet) 1 tab PO QDAY PRN; Protocol PRN Reason: constipation Stop: 04/22/25 05:36 Discontinued Medications Sodium Chloride (Ns) 500 mls @ 999 mls/hr IV .Q31M ONE Stop: 03/22/25 22:28 Last Infusion: 03/22/25 22:41 Dose: Infused Lorazepam (Lorazepam 2 Mg/Ml Vial) 1 mg IVP X1 ONE Stop: 03/22/25 22:30 Last Admin: 03/22/25 22:34 Dose: 1 mg Morphine Sulfate (Morphine Sulf Inj 10 Mg/Ml Vial) 4 mg IV X1 ONE Stop: 03/22/25 22:01 Last Admin: 03/22/25 22:12 Dose: 4 mg Ondansetron HCl (Ondansetron Inj 2 Mg/Ml Inj 2 Ml) 4 mg IV X1 ONE Stop: 03/22/25 22:02 Last Admin: 03/22/25 22:13 Dose: 4 mg Pantoprazole Sodium (Pantoprazole Inj 40 Mg Vial) 40 mg IVP X1 ONE Stop: 03/23/25 03:56 Last Admin: 03/23/25 04:01 Dose: 40 mg Assessment & Plan Plan The patient is a 74-year-old female with a previous medical history of dementia, history of stroke with right-sided hemiparesis, type 2 diabetes, hypertension, CKD, CAD, bladder cancer s/p resection and urostomy, seizure disorder who was brought in by ambulance from [facility] due to hematemesis and syncope. Internal medicine team was consulted for suspected GI bleed and possible NSTEMI. #Suspected GI bleed Patient had coffee-ground emesis earlier. Right now hemoglobin 11.2. There is no need for blood transfusion for now. Patient refused blood transfusions in case they are needed. Patient is DNR/DNI with comfort measures. We will respect the patient's decision and will not proceed with invasive workup for GI bleed like EGD. Patient's son was unavailable for conversation at this time. Plan: ? Protonix 40 mg twice daily for 4 weeks ? Pantoprazole 40 mg BID - GI consult - will recommend to get in touch with son to discuss plan of care #Acute hypoxic respiratory failure Patient is saturating in 90s on 6L NC. Could be community acquired but also aspiraion event. Plan: - ceftriaxone + azithro for possible CAP - CXR - ABG ordered #Syncope episode? Patient reported to probably having a syncope. According to the notes, patient was found to diaphoretic on the toilet. Plan: - fall precautions #Non-STEMI, likely type II #Elevated troponin #History of CAD, status post PCI Most likely due to demand ischemia in the setting of GI bleed. Troponin initially 1.608?down trended to 1.040. EKG showed sinus rhythm. Patient does not report chest pain. Plan: ? Due to suspected GI bleed anticoagulation is contraindicated at this point #Left patellar subluxation Imaging showed left patellar subluxation. Most likely due to trauma during syncope. Patient denies pain. Plan: - pain control as needed #REYNOLD on CKD versus progression of CKD Patient received 500 cc of IV fluid in the ED Plan: - monitor CBC - consider starting fluids if kidney functions does not improve #History of dementia #History of stroke #History of levothyroxine #Type 2 diabetes #Hypertension #CKD #Bladder cancer s/p resection and urostomy #Seizure disorder Plan: ? resumed home antiseizure medications - resumed memantine - aspirin on hold due to GI bleed - resumed citalopram Health maintenance: FEN: NPO until passes swallow screen DVT prophylaxis: SCDs GI prophylaxis: pantoprazole 40 mg BID Dispo: telemetry CODE STATUS: DNR/DNI Plan of care discussed with attending Dr. Fuentes. Laquita Garcia MD, PGY 1. Attending Provider Attestation/Addendum I attest that I was physically present for the evaluation, physical examination, lab and imaging review of the patient with the residents. I discussed the case with the residents and agree with the findings and plans of care as documented above. Patient is a 74 years old female with past medical history of dementia, stroke with right-sided hemiparesis, type 2 diabetes mellitus, hypertension, CKD, CAD, bladder cancer s/p resection and urostomy, seizure disorder who presented to the ED from [facility] with complaint of hematemesis and syncope. Patient has dementia and is unable to provide appropriate history, HPI completed with help of chart review. In the ED, patient had soft blood pressure initially 88/50, she was saturating at 92% on 6 L nasal cannula. Lab results were significant for hemoglobin of 11.2, improved from 9.9 compared to her last visit, WBC 11.1, CO2 22.8, creatinine 1.4, glucose 185, troponin 1.608 which later down trended to 1.040. EKG showed sinus rhythm without ST changes. On exam, patient appears sleepy but easily arousable on calling. Oriented x 1, unable to provide history. Lungs are clear to auscultate, abdomen is nontender on palpation. Hospitalist team was consulted for possible admission for workup of GI bleeding, elevated troponin. Patient has a POLST form signed by patient's son stating patient is a DNR/DNI, and wants comfort focused treatment only, no invasive treatment/artificial feeding. Later in the morning, ED attending was able to reach out to patient's son, discussion regarding goals of care and admission were done, patient's son wished to be admitted to the hospital and undergo further investigation and treatment. We will admit the patient for management of GI bleeding, elevated troponin, REYNOLD on CKD versus progression of CKD and left patellar subluxation. We will start her on IV Protonix, bowel rest, GI consult. Patient received IV fluid bolus in the ED. We will add pain regimen as needed. Patient's saturation is in 90s despite 6 L nasal cannula, she also had mild leukocytosis, we will start her on IV antibiotics for acute on chronic hypoxic respiratory failure likely secondary to pneumonia. We will obtain an ABG and chest x-ray. Rhianna Fuentes MD
--- NOTE | 2025-03-23 06:00 | XR_ITS ---
Examination: AP chest single view TECHNIQUE: AP portable semiupright chest single view Exam daytime: March 23, 2025 0617 hours Comparison September 25, 2021 INDICATIONS: Shortness of breath and 8. FINDINGS: Significant pneumonia left base with possible left pleural fluid Mild enlargement left ventricle Ectatic calcified thoracic aorta The film is rotated LPO Prominent osteopenia IMPRESSION: Significant left base pneumonia
[2025-03-23] MEDS: AZITHROMYCIN INJ 500 MG in SODIUM CHLORIDE 0.9% 250 ML 250 ML 250 MG IV (06:26)
[2025-03-23] MEDS: cefTRIAXone/D5w 1gm IV premix 1 GM/50 ML BAG IV (06:26)
--- NOTE | 2025-03-23 06:35 | EDNOTE_ITS ---
Emergency Room Addendum <Aniyah Elliott - Last Filed: 03/23/25 07:43> Addendum Narrative: 0600: Care assumed from Dr. Hernandez (emergency physician). Past medical, surgical, social and family history reviewed. Vitals and home medications reviewed. Results and treatment plan discussed. I will assume the care of the patient at this time and will follow the patient, pending admission. Patient was admitted at [address] Garcia. <Lisset Velásquez MD - Last Filed: 03/29/25 18:49> Addendum Narrative: 0600: Care assumed from Dr. Hernandez (emergency physician). Past medical, surg ical, social and family history reviewed. Vitals and home medications reviewed. Results and treatment plan discussed. I will assume the care of the patient at this time and will follow the patient, pending admission. 0534: Admitted to hospitalist team.
[2025-03-23 06:36] LABS: Base Excess -2 (-3-3); HCO3 25 mEq/L (20-26); O2 Saturation 93 % (91-98); PCO2 46 mmHg (32.0-48.0); PO2 70 mmHg (83-108); pH, Arterial 7.33 (7.35-7.45)
[2025-03-23 06:37] LABS: Allen Test Not Performed; Inspired O2, VO2 Liters 5 L/min; Puncture Site Right Radial
[2025-03-23 06:42] LABS: Alanine Aminotransferase 13 U/L (10-49); Albumin, Serum 3.5 gm/dL (3.4-4.8); Albumin/Globulin Ratio 0.9 (1.2-2.2); Alkaline Phosphatase 131 U/L (46-116); Anion Gap 9 (7-16); Aspartate Amino Transferase 62 U/L (0-34); BUN/Creatinine Ratio 15 Ratio (12-20); Bilirubin,Total 0.2 mg/dL (0.3-1.2); Blood Urea Nitrogen 24 mg/dL (9-23); Calcium 8.7 mg/dL (8.3-10.6); Calcium (Corrected) 9.1 mg/dL (8.5-10.1); Carbon Dioxide 22.7 mMol/L (20.0-31.0); Chloride 107 mMol/L (98-107); Creatinine (Component) 1.6 mg/dL (0.6-1.3); Globulin 3.8 gm/dL (2.3-3.5); Glucose 211 mg/dL (74-106); Magnesium 2.1 mg/dL (1.6-2.6); Osmolality,Calculated 287 (275-295); Potassium 3.9 mMol/L (3.4-5.1); Sodium 139 mMol/L (136-145); Thyroid Stimulating Hormone 0.09 uIU/mL (0.55-4.78); Total Protein 7.3 gm/dL (5.7-8.2); eGFR 33 See Note
[2025-03-23 06:53] LABS: Basophils % (Auto) 0 % (0-2.5); Eosinophils % (Auto) 0 % (0-10); Hematocrit 36.3 % (36.0-46.0); Hemoglobin 11.6 g/dL (12.0-16.0); Immature Granulocytes % (Auto) 1 % (0-0); Immature Granulocytes Auto 0.07 Thou/mm3 (0.00-0.00); Lymphocytes # (Auto) 0.2 Thou/mm3 (1.0-4.8); Lymphocytes % (Auto) 2 % (10-50); Mean Corpuscular Hemoglobin 27.9 pg (25.0-35.0); Mean Corpuscular Volume 87 fL (80-100); Monocytes # (Auto) 0.8 Thou/mm3 (0.0-0.8); Monocytes % (Auto) 6 % (0-12); Neutrophils # (Auto) 12.7 Thou/mm3 (1.8-7.7); Neutrophils % (Auto) 92 % (37-80); Nucleated Red Blood Cell % 0 /100 WBC (0); Platelet Count 201 Thou/mm3 (140-440); RDW Standard Deviation 44.8 fL (36.4-46.3); Red Blood Count 4.16 Miln/mm3 (4.00-5.20); White Blood Count 13.8 Thou/mm3 (3.6-11.0)
[2025-03-23 07:57] LABS: Free T4 (Free Thyroxine) 1.47 ng/dL (0.89-1.76)
--- NOTE | 2025-03-23 08:23 | PC.NURSE ---
DR. BLANCAS MADE AWARE THAT THIS PT FAILED NURSE SWALLOW EVAL, HE REPORTED THAT HE WILL REVIEW PT PO MEDS
--- NOTE | 2025-03-23 11:02 | PD.RESEVENT ---
Documentation for date of: 03/23/25 Event Note Event Note: Patient admitted overnight for acute GI bleed workup. Patient failed bedside swallow evaluation. P.O. medications that were available in IV form were started (Keppra, Phenytoin, Levothyroxine...). BP was low, given patient's last echo in 2019 with EF 40%, patient was administered bolous 250 cc NS x1. Patient started on D5W NS IVF maintenance as she is NPO and has REYNOLD. #Suspected GI bleed #Seizure disorder #Acute hypoxic respiratory failure #REYNOLD on CKD #Non-STEMI, likely type II #History of CAD, status post PCI #Left patellar subluxation #History of dementia #History of stroke #History of levothyroxine #Type 2 diabetes #Hypertension #CKD #Bladder cancer s/p resection and urostomy
--- NOTE | 2025-03-23 12:43 | PCS.ST ---
FUR GLOSSER attempted swallow evaluation. Pt refused PO trials, claims she is not hungry and covers her head with blanket. FUR GLOSSER will attempt swallow evaluation later today
--- NOTE | 2025-03-23 14:05 | PCS.ST ---
LARGE ANIMAL HUSBANDRY TECHNICIAN re-attempted swallow evaluation. Pt continuing to cover her head with her blanket and refuse trials of water and solid textures. LARGE ANIMAL HUSBANDRY TECHNICIAN recommends re-do nurse swallow screen and if passed initiate D3 diet. Tele-speech should follow up for formal swallow evaluation tomorrow.
[2025-03-23] MEDS: levETIRAcetam INJ 100 MG/ML VIAL 5ML 1500 MG IVP ×2 (14:23→21:54)
[2025-03-23] MEDS: PHENYTOIN IV ×2 (14:25→21:54)
[2025-03-23] MEDS: SODIUM CHLORIDE 0.9% IV ×2 (14:25→21:54)
[2025-03-23] MEDS: SODIUM CHLORIDE 0.9% 500 ML 250 ML 999 ML IV (14:29)
[2025-03-23] MEDS: LEVOTHYROXINE INJ 100 mCg VIAL 90 MCG IV (15:19)
--- NOTE | 2025-03-23 16:13 | PD.IMCONS ---
HPI Data of Consult Requesting Physician: Rhianna Fuentes MD Primary Care Provider: Татьяна Hubbard MD Consult Narrative Reason for consult: Hematemesis History of present illness: 74 years old female evaluated at request of the internal medicine team for episodes of hematemesis She was transferred from SNF for episodes of coffee-ground hematemesis as well as episode of syncope She had a presenting hemoglobin hematocrit 11.6 and 36.3 with a platelet count of 201,000 BUN 24 and creatinine 1.6 Troponin was elevated at 1.608 which has come down to 1.040 Chest x-ray showed extensive left lower lobe pneumonia Patient does have a history of dementia CVA with right hemiparesis diabetes mellitus type 2 hypothyroidism CKD coronary artery disease and bladder CA status post cystectomy angiograph cc:: cc: Rhianna Fuentes MD Review of Systems Review of Systems ROS Unobtainable: unobtainable due to medical condition Past Medical History Surgical History OTHER SURGICAL HX: As in the history of present illness Meds Home Medications and Allergies Home Medications ?Medication ?Instructions ?Recorded ?Confirmed ?Type amlodipine 10 mg tablet 10 mg PO QDAY 01/08/21 03/23/25 History aspirin 81 mg tablet,delayed 81 mg PO QDAY 01/08/21 03/23/25 History release cholecalciferol (vitamin D3) 25 1,000 unit PO QDAY 01/08/21 02/17/21 History mcg (1,000 unit) capsule (Vitamin D3) citalopram 40 mg tablet 40 mg PO QDAY 01/08/21 02/17/21 History cyanocobalamin (vitamin B-12) 1,000 mcg PO QDAY 01/08/21 02/17/21 History 1,000 mcg tablet (Vitamin B-12) ferrous sulfate 325 mg (65 mg 325 mg PO QDAY 01/08/21 03/23/25 History iron) tablet hydralazine 50 mg tablet 50 mg PO QID 01/08/21 03/23/25 History levothyroxine 175 mcg tablet 200 mcg PO QDAY 01/08/21 03/23/25 History quetiapine 25 mg tablet 25 mg PO QPM 01/08/21 02/17/21 History acetaminophen 325 mg tablet 650 mg PO Q6H PRN Pain 02/17/21 03/23/25 History (Tylenol) bisacodyl 10 mg rectal suppository 10 mg [place] Q72H PRN Constipation 02/17/21 03/23/25 History (Dulcolax (bisacodyl)) magnesium hydroxide 400 mg/5 mL 30 ml PO Q72H PRN Constipation 02/17/21 02/17/21 History oral suspension (Milk of Magnesia) sodium phosphates 19 gram-7 118 ml [place] Q72H PRN Constipation 02/17/21 02/17/21 History gram/118 mL enema (Fleet Enema) citalopram 10 mg tablet (Celexa) 10 mg PO QDAY 03/23/25 03/23/25 History cyanocobalamin (vitamin B-12) 1,000 mcg PO QDAY 03/23/25 03/23/25 History 1,000 mcg capsule divalproex 250 mg tablet,delayed 250 mg PO BID 03/23/25 03/23/25 History release (Depakote) memantine 5 mg tablet 5 mg PO HS 03/23/25 03/23/25 History phenytoin sodium extended 200 mg 100 mg PO BID 03/23/25 03/23/25 History capsule Allergies Allergy/AdvReac Type Severity Reaction Status Date / Time cashew nut Allergy Unknown Hives Verified 07/20/20 08:28 quinine Allergy Unknown Verified 07/20/20 08:28 iodine Allergy Verified 03/23/25 06:27 Exam Vital Signs Temp Pulse Resp BP Pulse Ox O2 Del Method O2 Flow Rate 96.8 F 109 H 18 159/77 H 97 Nasal Cannula 2.5 03/23/25 12:00 03/23/25 13:39 03/23/25 13:39 03/23/25 12:00 03/23/25 13:39 03/23/25 12:00 03/23/25 13:39 Constitutional Comments: Chronically ill-appearing Routine Respiratory Exam Comments: Decreased breath sounds Routine Abdominal Exam Comments: Soft nontender Results Labs 03/24/25 04:48 03/24/25 04:48 Labs: Short CBC 03/22/25 03/23/25 Range/Units 22:16 06:05 WBC 11.1 H 13.8 H (3.6-11.0) Thou/mm3 Hgb 11.2 L 11.6 L (12.0-16.0) g/dL Hct 36.2 36.3 (36.0-46.0) % Plt Count 250 201 D (140-440) Thou/mm3 BMP 03/22/25 03/23/25 22:16 06:05 Sodium 143 139 Potassium 4.2 3.9 Chloride 110 H 107 Carbon Dioxide 22.8 22.7 BUN 20 24 H Creatinine 1.4 H 1.6 H Glucose 185 H 211 H Calcium 9.0 8.7 Cardiac Enzymes 03/22/25 03/23/25 Range/Units 22:16 02:02 Troponin I 1.608 H* 1.040 H* D (0.0-0.045) ng/mL Liver Function 03/22/25 03/23/25 Range/Units 22:16 06:05 Total Bilirubin 0.2 L 0.2 L (0.3-1.2) mg/dL AST 13 62 H (0-34) U/L ALT < 7 L 13 (10-49) U/L Alkaline Phosphatase 130 H 131 H (46-116) U/L Albumin 3.4 3.5 (3.4-4.8) gm/dL ABG Interpretation ABG results: 03/23/25 06:25 ABG pH 7.33 L ABG pCO2 46 ABG pO2 70 L ABG HCO3 25 ABG O2 Saturation 93 ABG Base Excess -2 Assessment and Plan Additional Assessment & Plan Additional Plan: # Hematemesis Consent will be obtained for fiberoptic esophagogastroduodenoscopy with possible therapeutic intervention possible biopsy under intravenous moderate sedation scheduled for tomorrow Patient also has difficulty swallowing we will see if the patient has esophageal stricture might need dilatation THOM Other medical problems include Dementia CVA with right-sided motor weakness Diabetes mellitus type 2 Hypothyroidism CKD Coronary artery disease Bladder carcinoma status post cystectomy total and 8 urostomy Thank you very much for the opportunity to participate in care of this patient
[2025-03-23] MEDS: DEXTROSE 5%-0.45% NS 1,000 ML 75 ML IV (16:44)
[2025-03-24] VITALS (10 sets, daily range): BP systolic 117–166; BP diastolic 81–97; PULSE 88–132; RESP 20–24; TEMP 36.1–36.8; O2SAT 94–95; BMI 25.1; BMI 25.0
--- NOTE | 2025-03-24 00:23 | PC.NURSE ---
Dr. Garcia notified of recent blood sugar spot check and patient unable to take oral medications. New orders received.
[2025-03-24] MEDS: RINGERS LACTATED 1000 ML 1,000 ML 75 ML IV (01:12)
[2025-03-24] MEDS: INSULIN LISPRO (AdmeLOG) 1 UNIT/0.01 ML UNIT SC ×2 (01:12→06:09)
[2025-03-24 05:45] LABS: Basophils # (Auto) 0.1 Thou/mm3 (0.0-0.2); Basophils % (Auto) 0 % (0-2.5); Eosinophils # (Auto) 0.4 Thou/mm3 (0.0-0.5); Eosinophils % (Auto) 2 % (0-10); Hemoglobin 12.5 g/dL (12.0-16.0); Immature Granulocytes % (Auto) 1 % (0-0); Immature Granulocytes Auto 0.11 Thou/mm3 (0.00-0.00); Lymphocytes # (Auto) 0.4 Thou/mm3 (1.0-4.8); Lymphocytes % (Auto) 2 % (10-50); Mean Corpuscular HGB Conc 31.3 g/dl (31.0-37.0); Mean Corpuscular Hemoglobin 27.2 pg (25.0-35.0); Mean Corpuscular Volume 87 fL (80-100); Monocytes # (Auto) 1.5 Thou/mm3 (0.0-0.8); Monocytes % (Auto) 8 % (0-12); Neutrophils # (Auto) 15.8 Thou/mm3 (1.8-7.7); Neutrophils % (Auto) 87 % (37-80); Nucleated Red Blood Cell % 0 /100 WBC (0); Platelet Count 191 Thou/mm3 (140-440); RDW Standard Deviation 46.2 fL (36.4-46.3); Red Blood Count 4.59 Miln/mm3 (4.00-5.20); White Blood Count 18.2 Thou/mm3 (3.6-11.0)
[2025-03-24 06:05] LABS: Alanine Aminotransferase 27 U/L (10-49); Albumin, Serum 3.5 gm/dL (3.4-4.8); Albumin/Globulin Ratio 0.9 (1.2-2.2); Alkaline Phosphatase 105 U/L (46-116); Anion Gap 12 (7-16); Aspartate Amino Transferase 66 U/L (0-34); BUN/Creatinine Ratio 15 Ratio (12-20); Bilirubin,Total 0.4 mg/dL (0.3-1.2); Blood Urea Nitrogen 35 mg/dL (9-23); Calcium 8.8 mg/dL (8.3-10.6); Calcium (Corrected) 9.2 mg/dL (8.5-10.1); Chloride 106 mMol/L (98-107); Creatinine (Component) 2.3 mg/dL (0.6-1.3); Estimated Creatinine Clearance 25.5 mL/min (>60); Globulin 3.7 gm/dL (2.3-3.5); Glucose 209 mg/dL (74-106); Magnesium 1.8 mg/dL (1.6-2.6); Osmolality,Calculated 295 (275-295); Phosphorous 4.3 mg/dL (2.4-5.1); Potassium 3.5 mMol/L (3.4-5.1); Sodium 141 mMol/L (136-145); Total Protein 7.2 gm/dL (5.7-8.2); eGFR 22 See Note
--- NOTE | 2025-03-24 07:56 | XR_ITS ---
Examination: Retroperitoneal ultrasound, complete Technique: Multiple high resolution grayscale images of the retroperitoneum obtained, including kidneys and bladder. Exam date and time:March 24, 2025 1259 hours INDICATIONS: Acute renal insufficiency on laboratory examination today FINDINGS: Right kidney 11.1 cm cortex 2.2 cm Lateral renal cyst 18 mm Mild right hydronephrosis Left kidney is not visualized Bladder is not visualized Incidental note hyperechoic mass in the spleen 11 x 9 cm and cyst 39 mm IMPRESSION: Limited study Mild right hydronephrosis Splenic masses as above, consider CT scan abdomen pelvis post intravenous contrast follow-up
[2025-03-24] MEDS: AZITHROMYCIN INJ 500 MG in SODIUM CHLORIDE 0.9% 250 ML 250 ML 250 MG IV (08:37)
[2025-03-24] MEDS: cefTRIAXone/D5w 1gm IV premix 1 GM/50 ML BAG IV (08:37)
[2025-03-24] MEDS: levETIRAcetam INJ 100 MG/ML VIAL 5ML 1500 MG IVP (08:38)
[2025-03-24] MEDS: CITALOPRAM 20 MG TABLET 10 MG PO (08:38)
[2025-03-24] MEDS: SODIUM CHLORIDE 0.9% IV (08:38)
[2025-03-24] MEDS: PANTOPRAZOLE INJ 40 MG VIAL IVP (08:38)
[2025-03-24] MEDS: PHENYTOIN IV (08:38)
[2025-03-24] MEDS: MEMANTINE HCL 5 MG TABLET PO (08:39)
[2025-03-24] MEDS: amLODIPine BESYLATE 5 MG TABLET 10 MG PO (08:39)
--- NOTE | 2025-03-24 08:47 | PD.RESCONSUL ---
HPI Data of Consult Consult date: 03/24/25 Requesting Physician: Rhianna Fuentes MD Admitting Provider: Rhianna Fuentes MD Attending Provider: Rhianna Fuentes MD Primary Care Provider: Татьяна Hubbard MD Consult Narrative Reason for consult: REYNOLD History of present illness: Ms Kelly is a 74-year-old female past medical history of dementia, CVA with residual right-sided hemiparesis, type 2 diabetes, hypothyroidism, hypertension, CKD, CAD, bladder cancer status post resection and urostomy bag, seizure disorder that was brought to our ED from [facility] due to hematemesis and syncope. In the ED patient was found to have soft blood pressures and initial presentation with 107/55, heart rate of 80, RR 27 satting at 92% on 6 L nasal cannula. Her hemoglobin was 11.2 with a WBC of 11.1 and platelets of 250. Her initial BUN was 28 with a creatinine of 1.4. At bedside no history could be obtained from patient as she is demented and very hard of hearing. She is able to answer simple questions but otherwise stares stating confusion with mouth open. She clears clinically dry and there was no tenderness to palpation of her abdomen. Nephrology team was consulted because patient's creatinine has continued to worsen despite IV fluid resuscitation. Her current creatinine is 2.3 with a BUN of 35. Patient has had 700 cc of urine output in the last 24 hours and she has urostomy bag on her abdomen without any erythema or discharge or cloudy urine seen. Patient's UA showed 1+ protein, leukocyte esterase positive, WBCs 72 with 1+ bacteria and a pH of 7.5. cc:: cc: Rhianna Fuentes MD Review of Systems Review of Systems ROS Unobtainable: unobtainable due to mental status Exam Vital Signs Temp Pulse Resp BP Pulse Ox O2 Del Method O2 Flow Rate 97.1 F 109 H 23 H 166/91 H 95 Nasal Cannula 2 03/24/25 07:30 03/24/25 08:39 03/24/25 07:30 03/24/25 08:39 03/24/25 07:30 03/24/25 07:30 03/24/25 07:30 Narrative Exam Constitutional: Well nourished and in no acute distress ENMT: Dry mucous Membranes, No trauma or injury. CVS: RRR, S1 and S2 present, no murmurs, rubs or gallops . RESP: CTAB, no SOB, no rales, rhonchi or wheezing. No respiratory Distress GI: Normal BS, Nontender/Nondistended. There is a urostomy bag in the suprapubic area that is draining yellow urine without erythema or discharge surrounding the site of insertion. MSK: Full range of motion, No trauma or deformities or masses. Skin: Warm to touch, Dry. No rashes or lesions. No hematomas. Neuro: Deferred Psych: (AAO) x 1. Able to answer simple questions only Results Labs 03/24/25 04:48 03/24/25 04:48 Labs: Short CBC 03/24/25 Range/Units 04:48 WBC 18.2 H (3.6-11.0) Thou/mm3 Hgb 12.5 (12.0-16.0) g/dL Hct 40.0 (36.0-46.0) % Plt Count 191 (140-440) Thou/mm3 BMP 03/24/25 04:48 Sodium 141 Potassium 3.5 Chloride 106 Carbon Dioxide 23.0 BUN 35 H Creatinine 2.3 H D Glucose 209 H Calcium 8.8 Liver Function 03/24/25 Range/Units 04:48 Total Bilirubin 0.4 (0.3-1.2) mg/dL AST 66 H (0-34) U/L ALT 27 (10-49) U/L Alkaline Phosphatase 105 D (46-116) U/L Albumin 3.5 (3.4-4.8) gm/dL ABG Interpretation ABG results: 03/23/25 06:25 ABG pH 7.33 L ABG pCO2 46 ABG pO2 70 L ABG HCO3 25 ABG O2 Saturation 93 ABG Base Excess -2 Quality Measures Quality Measures VTE prophylaxis Advance care planning discussed with:: patient Medications Home Medications and Allergies Home Medications ?Medication ?Instructions ?Recorded ?Confirmed ?Type amlodipine 10 mg tablet 10 mg PO QDAY 01/08/21 03/23/25 History aspirin 81 mg tablet,delayed 81 mg PO QDAY 01/08/21 03/23/25 History release cholecalciferol (vitamin D3) 25 1,000 unit PO QDAY 01/08/21 02/17/21 History mcg (1,000 unit) capsule (Vitamin D3) citalopram 40 mg tablet 40 mg PO QDAY 01/08/21 02/17/21 History cyanocobalamin (vitamin B-12) 1,000 mcg PO QDAY 01/08/21 02/17/21 History 1,000 mcg tablet (Vitamin B-12) ferrous sulfate 325 mg (65 mg 325 mg PO QDAY 01/08/21 03/23/25 History iron) tablet hydralazine 50 mg tablet 50 mg PO QID 01/08/21 03/23/25 History levothyroxine 175 mcg tablet 200 mcg PO QDAY 01/08/21 03/23/25 History quetiapine 25 mg tablet 25 mg PO QPM 01/08/21 02/17/21 History acetaminophen 325 mg tablet 650 mg PO Q6H PRN Pain 02/17/21 03/23/25 History (Tylenol) bisacodyl 10 mg rectal suppository 10 mg TX Q72H PRN Constipation 02/17/21 03/23/25 History (Dulcolax (bisacodyl)) magnesium hydroxide 400 mg/5 mL 30 ml PO Q72H PRN Constipation 02/17/21 02/17/21 History oral suspension (Milk of Magnesia) sodium phosphates 19 gram-7 118 ml TX Q72H PRN Constipation 02/17/21 02/17/21 History gram/118 mL enema (Fleet Enema) citalopram 10 mg tablet (Celexa) 10 mg PO QDAY 03/23/25 03/23/25 History cyanocobalamin (vitamin B-12) 1,000 mcg PO QDAY 03/23/25 03/23/25 History 1,000 mcg capsule divalproex 250 mg tablet,delayed 250 mg PO BID 03/23/25 03/23/25 History release (Depakote) memantine 5 mg tablet 5 mg PO HS 03/23/25 03/23/25 History phenytoin sodium extended 200 mg 100 mg PO BID 03/23/25 03/23/25 History capsule Allergies Allergy/AdvReac Type Severity Reaction Status Date / Time cashew nut Allergy Unknown Hives Verified 07/20/20 08:28 quinine Allergy Unknown Verified 07/20/20 08:28 iodine Allergy Verified 03/23/25 06:27 Visit Medications Acetaminophen (Acetaminophen 325 Mg Tablet) 650 mg PO Q6H PRN PRN Reason: Fever >100.3 or pain 1-3 Stop: 04/22/25 05:36 Albuterol/Ipratropium (Albuterol/Ipratropium (Duoneb) Rt Kamala 3 Ml Nebu) 3 ml INH Q4HRRT PRN PRN Reason: sob or wheezing Stop: 04/22/25 05:57 Amlodipine Besylate (Amlodipine Besylate 5 Mg Tablet) 10 mg PO QDAY [facility] Stop: 04/22/25 08:59 Last Admin: 03/24/25 08:39 Dose: 10 mg Citalopram Hydrobromide (Citalopram 20 Mg Tablet) 10 mg PO QDAY [facility] Stop: 04/22/25 08:59 Last Admin: 03/24/25 08:38 Dose: 10 mg Dextrose (Dextrose 50%-Water Inj 50 Ml Syringe) 25 ml IV Q15MIN PRN PRN Reason: BG 50-70 responsive npo pt Stop: 04/23/25 00:35 Dextrose (Dextrose 50%-Water Inj 50 Ml Syringe) 50 ml IV Q15MIN PRN PRN Reason: BG <50 OR BG <70 & pt unresponsive Stop: 04/23/25 00:35 Divalproex Sodium (Divalproex Sod Ec 125 Mg Tabec) 250 mg PO BID [facility] Stop: 04/22/25 10:29 Last Admin: 03/23/25 21:00 Dose: Not Given Glucagon (Glucagon Inj 1 Mg Vial) 1 mg IM Q15MIN PRN PRN Reason: BG <70, and no IV access Hydromorphone HCl (Hydromorphone Inj 2 Mg/Ml Vial) 1 mg IVP Q4HR PRN PRN Reason: pain 7-10 Stop: 03/28/25 11:13 Ceftriaxone Sodium/Dextrose (Rocephin/D5w 1gm Iv Premix) 1 gm in 50 mls @ 100 mls/hr IV QDAY [facility] Stop: 03/30/25 06:14 Last Admin: 03/24/25 08:37 Dose: 100 mls/hr Azithromycin 500 mg/ Sodium (Chloride) 250 mls @ 250 mls/hr IV QDAY [facility] Stop: 03/31/25 08:59 Last Admin: 03/24/25 08:37 Dose: 250 mls/hr Phenytoin Sodium 200 mg/ (Sodium Chloride) 54 mls @ 54 mls/hr IV BID CHARLES Stop: 04/22/25 20:59 Last Admin: 03/24/25 08:38 Dose: 54 mls/hr Lactated Ringer's (Lactated Ringers) 1,000 mls @ 75 mls/hr IV .[id number] CHARLES Stop: 04/23/25 00:51 Last Admin: 03/24/25 01:12 Dose: 75 mls/hr Insulin Human Lispro (Insulin Lispro (Admelog) 1 Unit/0.01 Ml Unit) 0 unit SC Q6HR CHARLES; Protocol Stop: 04/23/25 00:44 Last Admin: 03/24/25 06:09 Dose: 1 unit Labetalol HCl (Labetalol Inj 5 Mg/Ml Vial 20 Ml) 10 mg IVP Q4H PRN; Protocol PRN Reason: hypertension Stop: 04/22/25 13:00 Levetiracetam (Levetiracetam Inj 100 Mg/Ml Vial 5ml) 1,500 mg IVP Q12HR CHARLES Stop: 04/22/25 20:59 Last Admin: 03/24/25 08:38 Dose: 1,500 mg Lorazepam (Lorazepam 2 Mg/Ml Vial) 2 mg IVP Q5M PRN PRN Reason: for seizure breakthrough Memantine (Memantine Hcl 5 Mg Tablet) 5 mg PO BID CHARLES Stop: 04/22/25 08:59 Last Admin: 03/24/25 08:39 Dose: 5 mg Pantoprazole Sodium (Pantoprazole Inj 40 Mg Vial) 40 mg IVP BID CHARLES Stop: 04/22/25 08:59 Last Admin: 03/24/25 08:38 Dose: 40 mg Quetiapine Fumarate (Quetiapine Fumarate 25 Mg Tablet) 25 mg PO QPM CHARLES Stop: 04/22/25 20:59 Last Admin: 03/23/25 21:00 Dose: Not Given Sennosides (Senna Tablet) 1 tab PO QDAY PRN; Protocol PRN Reason: constipation Stop: 04/22/25 05:36 Discontinued Medications Sodium Chloride (Ns) 500 mls @ 999 mls/hr IV .Q31M ONE Stop: 03/22/25 22:28 Last Infusion: 03/22/25 22:41 Dose: Infused Azithromycin 500 mg/ Sodium (Chloride) 250 mls @ 250 mls/hr IV X1 ONE Stop: 03/23/25 07:29 Last Infusion: 03/23/25 07:48 Dose: Infused Lactated Ringer's (Lactated Ringers) 250 mls @ 999 mls/hr IV .Q16M ONE Stop: 03/23/25 10:54 Sodium Chloride (Ns) 250 mls @ 999 mls/hr IV .Q16M ONE Stop: 03/23/25 11:01 Sodium Chloride (Ns) 250 mls @ 999 mls/hr IV .Q16M ONE Stop: 03/23/25 11:21 Last Admin: 03/23/25 14:29 Dose: 999 mls/hr Phenytoin Sodium 200 mg/ (Sodium Chloride) 54 mls @ 54 mls/hr IV X1 ONE Stop: 03/23/25 14:14 Last Admin: 03/23/25 14:25 Dose: 54 mls/hr Dextrose/Sodium Chloride (D5-1/2ns) 500 mls @ 75 mls/hr IV .[id number] ONE Stop: 03/23/25 21:30 Dextrose/Sodium Chloride (D5-1/2ns) 1,000 mls @ 75 mls/hr IV .[id number] ONE Stop: 03/24/25 04:10 Dextrose/Sodium Chloride (D5-1/2ns) 1,000 mls @ 75 mls/hr IV .[id number] ONE Stop: 03/24/25 05:04 Last Admin: 03/23/25 16:44 Dose: 75 mls/hr Levetiracetam (Levetiracetam 250 Mg Tablet) 1,500 mg PO BID CHARLES Stop: 04/22/25 08:59 Last Admin: 03/23/25 09:03 Dose: Not Given Levetiracetam (Levetiracetam Inj 100 Mg/Ml Vial 5ml) 1,500 mg IVP X1 ONE Stop: 03/23/25 13:00 Last Admin: 03/23/25 14:23 Dose: 1,500 mg Levothyroxine Sodium (Levothyroxine Sodium 100 Mcg Tablet) 200 mcg PO ACBR CHARLES Stop: 04/22/25 05:59 Last Admin: 03/23/25 08:25 Dose: Not Given Levothyroxine Sodium (Levothyroxine Inj 100 Mcg Vial) 90 mcg IV X1 ONE Stop: 03/23/25 11:12 Last Admin: 03/23/25 15:19 Dose: 90 mcg Lorazepam (Lorazepam 2 Mg/Ml Vial) 1 mg IVP X1 ONE Stop: 03/22/25 22:30 Last Admin: 03/22/25 22:34 Dose: 1 mg Morphine Sulfate (Morphine Sulf Inj 10 Mg/Ml Vial) 4 mg IV X1 ONE Stop: 03/22/25 22:01 Last Admin: 03/22/25 22:12 Dose: 4 mg Ondansetron HCl (Ondansetron Inj 2 Mg/Ml Inj 2 Ml) 4 mg IV X1 ONE Stop: 03/22/25 22:02 Last Admin: 03/22/25 22:13 Dose: 4 mg Oxycodone/Acetaminophen (Oxycodone/Apap 5/325 Tablet) 1 tab PO Q6H PRN PRN Reason: PAIN SCALE 4-6 (Moderate Stop: 03/28/25 05:36 Pantoprazole Sodium (Pantoprazole Inj 40 Mg Vial) 40 mg IVP X1 ONE Stop: 03/23/25 03:56 Last Admin: 03/23/25 04:01 Dose: 40 mg Phenytoin (Phenytoin 100 Mg/4 Ml Udc) 200 mg PO BID CHARLES Stop: 04/22/25 08:59 Last Admin: 03/23/25 11:06 Dose: Not Given Assessment & Plan Plan Ms Kelly is a 74-year-old female past medical history of dementia, CVA with residual right-sided hemiparesis, type 2 diabetes, hypothyroidism, hypertension, CKD, CAD, bladder cancer status post resection and urostomy bag, seizure disorder admitted after an episode of syncope and hematemesis. #REYNOLD on CKD #ATN Patient is presenting with worsening renal function as her creatinine increased to 2.3 from a baseline of 1.4 despite IV fluid resuscitation Patient likely experiencing ischemic ATN as she was found to have soft blood pressures on initial presentation we are unsure how long she was with low blood pressures Patient received 2-1/2 L of D5 NS. Medical reconciliation does not show any recent changes to her medications Plan: ? Agree to continue LR at 75 cc/h ? Patient is currently n.p.o., advance diet once her GI workup is concluded ? Renal ultrasound ordered ? Urine sodium ordered - Microalbumin with creatinine ordered ?PTH ordered ? Avoid nephrotoxic medications ? Keep patient euglycemic ? Treat possible underlying infections ? Monitor urine output through urostomy bag #Suspected GI bleed #Seizure disorder #Acute hypoxic respiratory failure #Non-STEMI, likely type II #History of CAD, status post PCI #Left patellar subluxation #History of dementia #History of stroke #History of levothyroxine #Type 2 diabetes #Hypertension #Bladder cancer s/p resection and urostomy ?Managed as per primary team Thank you for allowing us to be part of patient's care during her time at [facility] I discussed patient's care with attending physician, Dr Gatito Almaguer PGY3 Attending Provider Attestation/Addendum Patient seen and examined with resident physician Dr. Almaguer. Note reviewed, agree with findings and recommendations. Clinically patient looks rather dehydrated. Agree with IV fluids. Will monitor closely. Patient complaining of abdominal pain. Ordered CT abdomen showed atrophy left kidney and left hydronephrosis. Patient also has mild right hydronephrosis. She has diverting urostomy and pneumoperitoneum. Recommended surgical evaluation Renal ultrasound showed mild left hydronephrosis. Not sure if she is a candidate for dialysis due to fragility. Will discuss with family. Overall prognosis remains guarded
[2025-03-24 09:03] LABS: Parathyroid Hormone Intact 164.7 pg/ml (18.5-88.0)
--- NOTE | 2025-03-24 10:38 | ESPR_ITS ---
Documentation for date of: 03/24/25 Subjective Subjective Interval history: Patient seen and examined at bedside. Patient's somnolent, does have some abdominal tenderness. Patient's labs and vitals reviewed, REYNOLD worse compared to yesterday. Ordered urine electrolytes, urine analysis and renal ultrasound, nephrology was consulted. Ordered CT abdomen pelvis. Patient's CT abdomen pelvis shows suspicious findings of ischemic bowel and pelvis with air and small bowel romo and pneumoperitoneum. General surgery was consulted, ordered lactate stat. Contacted patient's son about findings. Case was discussed with patient's son along with the general surgeon, son was explained the poor prognosis considering patient has multiple comorbidities and is very high risk for surgery, he verbalized understanding. Later goals of care discussion held with the son, informed him about the poor prognosis considering her multiple comorbidities, was given the option of comfort care and hospice care, son wants to continue with medical management for now and he would like to talk and discuss with the rest of his family. Patient's son confirmed that patient wished to be DNR/DNI. Will continue to monitor patient, will continue IV antibiotics, monitor vitals closely. Exam Vital Signs Temp Pulse Resp BP Pulse Ox O2 Del Method O2 Flow Rate 97.1 F 109 H 23 H 166/91 H 95 Nasal Cannula 2 03/24/25 07:30 03/24/25 08:39 03/24/25 07:30 03/24/25 08:39 03/24/25 07:30 03/24/25 07:30 03/24/25 07:30 Narrative Exam Physical Exam General: Awake and in no acute distress. Conversational and non-toxic appearing. Somnolent. HEENT: Normocephalic, atraumatic, mucous membranes moist. Heart: Regular rate and rhythm, no murmurs. Lungs: Clear to auscultation with no wheezing or crackles. Abdomen: Soft, nondistended, significantly tender, positive bowel sounds. Urostomy bag noted. Neurologic: Alert and oriented x3, no gross neurological deficit, and patient able to move all 4 extremities. Extremities: No edema. Skin: No rash or ecchymoses. Objective Labs 03/24/25 04:48 03/24/25 04:48 Labs: Laboratory Results - last 24 hr 03/24/25 04:48 WBC 18.2 H RBC 4.59 Hgb 12.5 Hct 40.0 MCV 87 MCH 27.2 MCHC 31.3 RDW Std Deviation 46.2 Plt Count 191 Neut % (Auto) 87 H Lymph % (Auto) 2 L [place] % (Auto) 8 Eos % (Auto) 2 Baso % (Auto) 0 Neut # (Auto) 15.8 H Lymph # (Auto) 0.4 L [place] # (Auto) 1.5 H Eos # (Auto) 0.4 Baso # (Auto) 0.1 Immature Gran # (Auto) 0.11 H Absolute Nucleated RBC 0.00 Immature Gran % 1 H Nucleated RBC % 0 Sodium 141 Potassium 3.5 Chloride 106 Carbon Dioxide 23.0 Anion Gap 12 BUN 35 H Creatinine 2.3 H D Estim Creat Clear Calc 25.5 L eGFR 22 L BUN/Creatinine Ratio 15 Glucose 209 H Calculated Osmolality 295 Calcium 8.8 Corrected Calcium 9.2 Phosphorus 4.3 Magnesium 1.8 Total Bilirubin 0.4 AST 66 H ALT 27 Alkaline Phosphatase 105 D Total Protein 7.2 Albumin 3.5 Globulin 3.7 H Albumin/Globulin Ratio 0.9 L PTH Intact 164.7 H ABG Interpretation ABG results: 03/23/25 06:25 ABG pH 7.33 L ABG pCO2 46 ABG pO2 70 L ABG HCO3 25 ABG O2 Saturation 93 ABG Base Excess -2 Quality Measures Quality Measures VTE prophylaxis Advance care planning discussed with:: child Assessment & Plan Assessment Current Active Medications: Generic Name Dose Route Start Last Admin Trade Name Freq PRN Reason Stop Dose Admin Acetaminophen 650 mg 03/23/25 05:37 Acetaminophen 325 Mg Tablet PO 04/22/25 05:36 Q6H PRN Fever >100.3 or pain 1-3 Albuterol/Ipratropium 3 ml 03/23/25 05:58 Albuterol/Ipratropium (Duoneb) Rt Kamala 3 Ml Nebu INH 04/22/25 05:57 Q4HRRT PRN sob or wheezing Amlodipine Besylate 10 mg 03/23/25 09:00 03/24/25 08:39 Amlodipine Besylate 5 Mg Tablet PO 04/22/25 08:59 10 mg QDAY CHARLES Administration Citalopram Hydrobromide 10 mg 03/23/25 09:00 03/24/25 08:38 Citalopram 20 Mg Tablet PO 04/22/25 08:59 10 mg QDAY CHARLES Administration Dextrose 25 ml 03/24/25 00:36 Dextrose 50%-Water Inj 50 Ml Syringe IV 04/23/25 00:35 Q15MIN PRN BG 50-70 responsive npo pt Dextrose 50 ml 03/24/25 00:36 Dextrose 50%-Water Inj 50 Ml Syringe IV 04/23/25 00:35 Q15MIN PRN BG <50 OR BG <70 & pt unresponsive Divalproex Sodium 250 mg 03/23/25 10:30 03/23/25 21:00 Divalproex Sod Ec 125 Mg Tabec PO 04/22/25 10:29 Not Given BID CHARLES Glucagon 1 mg 03/24/25 00:36 Glucagon Inj 1 Mg Vial IM Q15MIN PRN BG <70, and no IV access Hydromorphone HCl 1 mg 03/23/25 11:14 Hydromorphone Inj 2 Mg/Ml Vial IVP 03/28/25 11:13 Q4HR PRN pain 7-10 Ceftriaxone Sodium/Dextrose 1 gm in 50 mls @ 100 mls/hr 03/23/25 06:15 03/24/25 08:37 Rocephin/D5w 1gm Iv Premix IV 03/30/25 06:14 100 mls/hr QDAY CHARLES Administration Azithromycin 500 mg/ Sodium 250 mls @ 250 mls/hr 03/24/25 09:00 03/24/25 08:37 Chloride IV 03/31/25 08:59 250 mls/hr QDAY CHARLES Administration Phenytoin Sodium 200 mg/ 54 mls @ 54 mls/hr 03/23/25 21:00 03/24/25 08:38 Sodium Chloride IV 04/22/25 20:59 54 mls/hr BID CHARLES Administration Lactated Ringer's 1,000 mls @ 75 mls/hr 03/24/25 00:52 03/24/25 01:12 Lactated Ringers IV 04/23/25 00:51 75 mls/hr .[id number] CHARLES Administration Insulin Human Lispro 0 unit 03/24/25 00:45 03/24/25 06:09 Insulin Lispro (Admelog) 1 Unit/0.01 Ml Unit SC 04/23/25 00:44 1 unit Q6HR CHARLES Administration Protocol Labetalol HCl 10 mg 03/23/25 13:01 Labetalol Inj 5 Mg/Ml Vial 20 Ml IVP 04/22/25 13:00 Q4H PRN hypertension Protocol Levetiracetam 1,500 mg 03/23/25 21:00 03/24/25 08:38 Levetiracetam Inj 100 Mg/Ml Vial 5ml IVP 04/22/25 20:59 1,500 mg Q12HR CHARLES Administration Lorazepam 2 mg 03/23/25 14:54 Lorazepam 2 Mg/Ml Vial IVP Q5M PRN for seizure breakthrough Memantine 5 mg 03/23/25 09:00 03/24/25 08:39 Memantine Hcl 5 Mg Tablet PO 04/22/25 08:59 5 mg BID CHARLES Administration Pantoprazole Sodium 40 mg 03/23/25 09:00 03/24/25 08:38 Pantoprazole Inj 40 Mg Vial IVP 04/22/25 08:59 40 mg BID CHARLES Administration Quetiapine Fumarate 25 mg 03/23/25 21:00 03/23/25 21:00 Quetiapine Fumarate 25 Mg Tablet PO 04/22/25 20:59 Not Given QPM CHARLES Sennosides 1 tab 03/23/25 05:37 Senna Tablet PO 04/22/25 05:36 QDAY PRN constipation Protocol Plan Assessment and plan: Summary: Ms Fisher is a 74-year-old female with a previous medical history of dementia, history of stroke with right-sided hemiparesis, type 2 diabetes, hypertension, CKD, CAD, bladder cancer s/p resection and urostomy, seizure disorder who was brought in by ambulance from [facility] due to hematemesis and syncope. Internal medicine team was consulted for suspected GI bleed and possible NSTEMI. #Severe abdominal tenderness #Pneumoperitoneum, CT suspicious findings of ischemic bowel #GI bleed #Splenic mass Patient had coffee-ground emesis earlier. Right now hemoglobin 11.2. There is no need for blood transfusion for now. Patient refused blood transfusions in case they are needed. Patient is DNR/DNI with comfort measures. We will respect the patient's decision and will not proceed with invasive workup for GI bleed like EGD. Patient's son was unavailable for conversation at this time. 03/24: Patient was found to be somnolent and had some abdominal tenderness, ultrasound of kidneys showed splenomegaly/splenic mass, recommended CT abdomen pelvis. CT abdomen pelvis findings shows suspicious findings of ischemic bowel and pelvis with air and small bowel romo and pneumoperitoneum. Contacted patient's son about findings. Case was discussed with patient's son along with the general surgeon, son was explained the poor prognosis considering patient has multiple comorbidities and is very high risk for surgery, he verbalized understanding. Later goals of care discussion held with the son, informed him about the poor prognosis considering her multiple comorbidities, was given the option of comfort care and hospice care, son wants to continue with medical management for now and he would like to talk and discuss with the rest of his family. Patient's son confirmed that patient wished to be DNR/DNI. Plan: - Patient started on Zosyn 3.375 every 6 hours (03/24- ? Pantoprazole 40 mg BID - NPO now - Dilaudid 1 mg every 4 hours as needed - General Surgery consulted, appreciate recommendations - Per general surgery patient has multiple comorbidities, is at very high risk for surgery. - GI consult, recommended against EGD currently, appreciate recommendations - Informed son about poor prognosis considering her multiple comorbidities, given the option of comfort care and hospice care, son wants to continue for medical management for now. #REYNOLD on CKD versus progression of CKD Patient received 500 cc of IV fluid in the ED. Patient was given LR bolus 03/23, was eventually started on D5 NS 03/24-nephrology consulted due to worsening REYNOLD. Ordered urine analysis, urine electrolytes and renal ultrasound Renal ultrasound showed Mild right hydronephrosis Splenic masses as above, consider CT scan abdomen pelvis post intravenous contrast follow-up Plan: -Patient was given 1 L LR bolus per nephrology recs -Will continue maintenance fluid LR 75 cc/h -Follow urine analysis, urine electrolytes -Nephrology consulted, appreciate recommendations -Renally dose medications -Avoid nephrotoxic agents #Acute hypoxic respiratory failure # Community-acquired pneumonia Patient is saturating in 90s on 6L NC. Could be community acquired but also aspiraion event. Chest x-ray shows significant left base pneumonia Patient was on ceftriaxone and azithromycin (03/23-03/24) Plan: - Will continue Zosyn -DuoNebs as needed - Supplemental oxygen as needed - Follow-up blood cultures #?Syncope episode #Left patellar subluxation Patient reported to probably having a syncope. According to the notes, patient was found to diaphoretic on the toilet. Femur x-ray shows lateral dislocation of patella knee x-ray shows lateral subluxation of patella Plan: - Fall precautions - Pain control as needed #Non-STEMI, likely type II #Elevated troponin #History of CAD, status post PCI Most likely due to demand ischemia in the setting of GI bleed. Troponin initially 1.608?down trended to 1.040. EKG showed sinus rhythm. Patient does not report chest pain. Plan: ? Monitor for chest pain, anticoagulation contraindicated currently. - Ordered Echocardiogram #Severe Hypothyroidism TSH 03/23/25: 0.09, free T4 1.47 Patient was given levothyroxine 90mcg IV x1 Will consider resuming levothyroxine 200 mcg p.o. daily #Type 2 diabetes - Sliding scale insulin, Hypoglycemia protocol, fingerstick blood glucose monitor #Hypertension Patient is on amlodipine 10 mg p.o. daily, hold in setting of abdominal ischemia #Dementia #Depression Patient on citalopram 10 mg daily and Seroquel 25 mg every afternoon - Hold home medications #Seizure disorder Divalproex 250 mg p.o. twice daily Keppra 1500 mg twice daily Ativan as needed for seizure Phenytoin 200 mg IV twice daily #Bladder cancer s/p resection and urostomy DVT prophylaxis: SCDs GI prophylaxis: Protonix twice daily Diet: N.p.o. Lines: Peripheral IV Code status: DNR/DNI, goals of care discussion with son Case discussed with Attending Dr. Pyle and Dr. Talamantes PGY3. Pablo Mcmahon PGY1 Disclaimer: This note was dictated by speech recognition. Minor errors in english and reading instructor may be present due to voice recognition software. ALEXANDER discussed with and supervised the grinder set up operator internal physician who took care of this patient. I personally saw and examined the patient and discussed the assessment and plan with the entire medicine team, including my attending Dr. Bob Ji MD. I agree with the assessment and plan as documented above. Patient interviewed and examined at bedside this a.m. Due to worsening REYNOLD as evidenced on patient's renal panel, consulted nephrology. A CT abdomen pelvis was due to the patient having severe abdominal pain. On exam the patient was tender however the abdomen was soft. CT abdomen pelvis was concerning for ischemic bowel with pneumoperitoneum. Immediately consulted general surgery who came and evaluated the patient. Due to the patient's vast comorbidities, the patient was deemed a high risk for surgical intervention and not a candidate. Conveyed these findings to the patient's son and emphasized the patient's poor prognosis. Due to the aforementioned findings, had a goals of care discussion with patient's son who ultimately made the patient comfort care measures only. Singh Talamantes M.D. Internal Medicine PGY-3 Attending Provider Attestation/Addendum Patient has ischemic bowel seen on CT scan. The patient's abdomen is tender. She has leukocytosis. I met with the patient's son Artemio at bedside with surgeon Dr. Roblero. She has significant comorbidities and poor nutritional status.Patient's son decided on comfort measures only this afternoon per internal medicine residents.
--- NOTE | 2025-03-24 10:52 | PC.SS ---
Follow up note: REYNOLD, IV fluids, Nephrology consulting, and on IV antibiotic. EGD today. Pt is from [facility] and will return upon dc.
--- NOTE | 2025-03-24 11:39 | PC.SS ---
SS attempted to meet with pt but she is confused.? 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 Pt is currently on 3 liters of O2.? SS poke to Madeleine at [facility] who states patient's son, Devante Brown is her medical decision maker.? Pt transfers into wheelchair with assistance.? Pt requires assistance with ADLS.? Pt follows Dr. Saldivar at [facility].? Pt will return to [facility] upon dc and will require transportation.?? DC Plan:? Return to [facility] Next of Kin:? Devante Brown, son, phone# [phone] PCP:? Dr. Saldivar Address:? Correct on facesheet
--- NOTE | 2025-03-24 13:06 | XR_ITS ---
Examination: CT abdomen and pelvis without contrast. Coronal 3-D reconstructions. Sagittal 2-D reconstructions. Date and time of exam:March 24, 2025 1353 hours Comparison March 19, 2017 INDICATIONS: Onset mid abdominal pain beginning 2 days ago CTDI: vol (mGy): 16.2 DLP: (mGycm): 837 Technique: Axial images of the abdomen have been obtained, 3 mm slice thickness Intravenous contrast material has not been administered. Low dose protocols were performed. One or more of the following dose reduction techniques were used; automated exposure control, adjustment of the mA and/or KV according to patient size, use of iterative reconstruction technique. Findings: Pericardial effusion measuring up to 10 mm Splenomegaly 14 cm Pneumoperitoneum No focal liver lesions No gallstones No pancreatic mass 25 mm fat-containing left adrenal nodule Atrophic left kidney with air in the urinary collecting system and moderate left hydronephrosis Mild right hydronephrosis The diverting urostomy Fluid distended small bowel in the pelvis with multiple air densities in the wall of the bowel and possible air droplets outside the bowel wall axial image 176 No urinary bladder IMPRESSION: Findings suspicious for ischemic small bowel in the pelvis with air in the small bowel romo and pneumoperitoneum Recommend surgical consultation
[2025-03-24] MEDS: RINGERS LACTATED 1000 ML 1,000 ML 999 ML IV (15:10)
[2025-03-24 15:28] LABS: Lactate (Lactic Acid) 2.1 mMol/L (0.4-2.0)
--- NOTE | 2025-03-24 16:33 | PD.SURCONS ---
HPI Consult details History of present illness: 74F with HTN, CKD, CAD, hypothyroidism, seizures, CVA with R sided hemiparesis, dementia and bladder cancer s/p cystectomy and urostomy who was admitted 03/23 from [facility] for hematemesis and syncope. Today pt was noted to have tachycardia and abdominal pain, so she underwent CT AP with findings of possible small bowel ischemia in the pelvis. On exam pt was resting in bed, she opened her eyes but did not communicate much verbally and she did not allow for much of an abdominal exam as she swatted my hand away. Pt's son was at bedside and he states this is not her baseline, that usually she is more alert and can be somewhat active PMH: HTN, CKD, CAD, hypothyroidism, seizures, CVA with R sided hemiparesis, dementia PSHx: Cystectomy with urostomy for bladder CA, son states it was several years ago Meds: includes ASA 81 Allergies: Quinine, iodine Review of Systems Review of Systems ROS Unobtainable: unobtainable due to mental status Meds Home Medications and Allergies Home Medications ?Medication ?Instructions ?Recorded ?Confirmed ?Type amlodipine 10 mg tablet 10 mg PO QDAY 01/08/21 03/23/25 History aspirin 81 mg tablet,delayed 81 mg PO QDAY 01/08/21 03/23/25 History release cholecalciferol (vitamin D3) 25 1,000 unit PO QDAY 01/08/21 02/17/21 History mcg (1,000 unit) capsule (Vitamin D3) citalopram 40 mg tablet 40 mg PO QDAY 01/08/21 02/17/21 History cyanocobalamin (vitamin B-12) 1,000 mcg PO QDAY 01/08/21 02/17/21 History 1,000 mcg tablet (Vitamin B-12) ferrous sulfate 325 mg (65 mg 325 mg PO QDAY 01/08/21 03/23/25 History iron) tablet hydralazine 50 mg tablet 50 mg PO QID 01/08/21 03/23/25 History levothyroxine 175 mcg tablet 200 mcg PO QDAY 01/08/21 03/23/25 History quetiapine 25 mg tablet 25 mg PO QPM 01/08/21 02/17/21 History acetaminophen 325 mg tablet 650 mg PO Q6H PRN Pain 02/17/21 03/23/25 History (Tylenol) bisacodyl 10 mg rectal suppository 10 mg SC Q72H PRN Constipation 02/17/21 03/23/25 History (Dulcolax (bisacodyl)) magnesium hydroxide 400 mg/5 mL 30 ml PO Q72H PRN Constipation 02/17/21 02/17/21 History oral suspension (Milk of Magnesia) sodium phosphates 19 gram-7 118 ml SC Q72H PRN Constipation 02/17/21 02/17/21 History gram/118 mL enema (Fleet Enema) citalopram 10 mg tablet (Celexa) 10 mg PO QDAY 03/23/25 03/23/25 History cyanocobalamin (vitamin B-12) 1,000 mcg PO QDAY 03/23/25 03/23/25 History 1,000 mcg capsule divalproex 250 mg tablet,delayed 250 mg PO BID 03/23/25 03/23/25 History release (Depakote) memantine 5 mg tablet 5 mg PO HS 03/23/25 03/23/25 History phenytoin sodium extended 200 mg 100 mg PO BID 03/23/25 03/23/25 History capsule Allergies Allergy/AdvReac Type Severity Reaction Status Date / Time cashew nut Allergy Unknown Hives Verified 07/20/20 08:28 quinine Allergy Unknown Verified 07/20/20 08:28 iodine Allergy Verified 03/23/25 06:27 Exam Vital Signs Temp Pulse Resp BP Pulse Ox O2 Del Method O2 Flow Rate 97.1 F 132 H 24 H 135/92 H 95 Nasal Cannula 2 03/24/25 16:00 03/24/25 16:00 03/24/25 16:00 03/24/25 16:00 03/24/25 16:00 03/24/25 16:00 03/24/25 16:00 Constitutional Constitutional: mild distress Routine Respiratory Exam Respiratory: Present no resp distress Routine Abdominal Exam Abdominal: Present soft, guarding (I was able to palpate briefly and found the abdomen to be soft but pt moved my hand away multiple times so out of respect for her wishes I did not continue attempts at further palpation) and ostomy Results Results: Laboratory Laboratory results: results reviewed Results: Imaging CT scan - abdomen: report reviewed and image reviewed Assessment & Plan Plan 74F with HTN, CKD, CAD, hypothyroidism, seizures, CVA with R sided hemiparesis, dementia and bladder cancer s/p cystectomy and urostomy who was admitted 03/23 from [facility] for hematemesis and syncope, today with abdominal pain and tachycardia with findings of possible small bowel ischemia on CT. Using ACS NSQIP risk calculator pt has a 50% risk of serious complication and 22% risk of from surgery. Given her comorbid conditions it does seem that surgery confers excessively high risk and that pt would not be likely to have a meaningful recovery. Along with the hospitalist I explained this to pt's son and he was very understanding, agreeing with conservative management. NPO IV abx Consider enteral nutrition Please feel free to contact me with concerns or questions
[2025-03-24] MEDS: PIPER/TAZO 3.375 GM PREMIX 3.375 GM/50 ML BAG IV (16:55)
--- NOTE | 2025-03-24 16:56 | PC.NURSE ---
report given to Alla CHAPMAN pt transferred room 279
[2025-03-24] MEDS: HYDROmorphone INJ 2 MG/ML VIAL 1 MG IVP (17:21)
--- NOTE | 2025-03-24 17:40 | PC.NURSE ---
Dr. Mcmahon and Dr. Talamantes came to talk to patient and family. Talked with family regarding patient's plan of care. Family has decided at this time to move forward with Comfort measures.
--- NOTE | 2025-03-24 18:02 | EVENTNT_ITS ---
Documentation for date of: 03/24/25 Event Note Event Note: Goals of care discussion held with patient's son and [id number] at bedside, earlier today patient's family was informed of CT findings of suspicion of ischemic bowel and pneumoperitoneum. General surgery evaluated the patient, earlier family wanted to continue with medical management as patient is a poor candidate for surgery considering her comorbidities, explained to the family that ischemic bowel and bowel perforation is a surgical emergency and requires emergent surgery. Patient's family does not want to proceed with any surgical intervention. Patient's family eventually decided to pursue comfort care, will stop all medical management and will transition patient to comfort care. Patient will be started on morphine drip and other comfort measures. Case discussed with Attending Dr. Pyle and Dr. Talamantes PGY3. Pablo Mcmahon PGY1 Disclaimer: This note was dictated by speech recognition. Minor errors in venetian blind tape cutter may be present due to voice recognition software.
[2025-03-24] MEDS: Morphine IV Drip 100mg/100ml 100 ML IV (18:10)
[2025-03-24] MEDS: SCOPOLAMINE 1 MG TDSY TOP (18:18)
[2025-03-24 18:28] LABS: Reflex Lactate? Y
--- NOTE | 2025-03-24 19:38 | ESPR_ITS ---
Documentation for date of: 03/24/25 Subjective Subjective Interval history: Patient was scheduled for upper endoscopic which I canceled because of the CT scan findings of small bowel ischemia with air in the romo of the small bowel in the pelvic region surgery has been consulted and rightly so she is a very high risk of any surgical intervention Exam Vital Signs Temp Pulse Resp BP Pulse Ox O2 Del Method O2 Flow Rate 97.1 F 132 H 24 H 135/92 H 95 Nasal Cannula 2 03/24/25 16:00 03/24/25 16:00 03/24/25 16:00 03/24/25 16:00 03/24/25 16:00 03/24/25 16:00 03/24/25 16:00 Objective Labs 03/24/25 04:48 03/24/25 04:48 Labs: Laboratory Results - last 24 hr 03/24/25 03/24/25 04:48 14:21 WBC 18.2 H RBC 4.59 Hgb 12.5 Hct 40.0 MCV 87 MCH 27.2 MCHC 31.3 RDW Std Deviation 46.2 Plt Count 191 Neut % (Auto) 87 H Lymph % (Auto) 2 L [place] % (Auto) 8 Eos % (Auto) 2 Baso % (Auto) 0 Neut # (Auto) 15.8 H Lymph # (Auto) 0.4 L [place] # (Auto) 1.5 H Eos # (Auto) 0.4 Baso # (Auto) 0.1 Immature Gran # (Auto) 0.11 H Absolute Nucleated RBC 0.00 Immature Gran % 1 H Nucleated RBC % 0 Sodium 141 Potassium 3.5 Chloride 106 Carbon Dioxide 23.0 Anion Gap 12 BUN 35 H Creatinine 2.3 H D Estim Creat Clear Calc 25.5 L eGFR 22 L BUN/Creatinine Ratio 15 Glucose 209 H Calculated Osmolality 295 Lactic Acid 2.1 H Calcium 8.8 Corrected Calcium 9.2 Phosphorus 4.3 Magnesium 1.8 Total Bilirubin 0.4 AST 66 H ALT 27 Alkaline Phosphatase 105 D Total Protein 7.2 Albumin 3.5 Globulin 3.7 H Albumin/Globulin Ratio 0.9 L PTH Intact 164.7 H Impressions Impression: # Hematemesis no plans for any endoscopy at this point because of the patient's underlying comorbidities # small bowel ischemia with pneumoperitoneum Supportive care cancel endoscopy ABG Interpretation ABG results: 03/23/25 06:25 ABG pH 7.33 L ABG pCO2 46 ABG pO2 70 L ABG HCO3 25 ABG O2 Saturation 93 ABG Base Excess -2 Assessment & Plan A&P Narrative # Hematemesis Consent will be obtained for fiberoptic esophagogastroduodenoscopy with possible therapeutic intervention possible biopsy under intravenous moderate sedation scheduled for tomorrow Patient also has difficulty swallowing we will see if the patient has esophageal stricture might need dilatation THOM Other medical problems include Dementia CVA with right-sided motor weakness Diabetes mellitus type 2 Hypothyroidism CKD Coronary artery disease Bladder carcinoma status post cystectomy total and 8 urostomy Thank you very much for the opportunity to participate in care of this patient Time Spent With Patient Time: Total time spent is greater than 50% in coordination of care (as documented) at patient's floor/unit and/or counseling patient:
[2025-03-25] VITALS: BP 141/85; PULSE 112; RESP 16; TEMP 36.4; O2SAT 97
[2025-03-25 01:52] VITALS: PULSE 97; RESP 16; O2SAT 96
[2025-03-25 04:00] VITALS: BP 134/76; PULSE 117; RESP 16; TEMP 36.7; O2SAT 97
[2025-03-25 08:00] VITALS: BP 133/84; PULSE 117; RESP 18; TEMP 36.6; O2SAT 95
[2025-03-25 09:23] VITALS: PULSE 113; RESP 20; O2SAT 97
--- NOTE | 2025-03-25 09:25 | ESPR_ITS ---
Documentation for date of: 03/25/25 Subjective Subjective Interval history: Reason for consult: REYNOLD History of present illness: Ms Kelly is a 74-year-old female past medical history of dementia, CVA with residual right-sided hemiparesis, type 2 diabetes, hypothyroidism, hypertension, CKD, CAD, bladder cancer status post resection and urostomy bag, seizure disorder that was brought to our ED from [facility] due to hematemesis and syncope. In the ED patient was found to have soft blood pressures and initial presentation with 107/55, heart rate of 80, RR 27 satting at 92% on 6 L nasal cannula. Her hemoglobin was 11.2 with a WBC of 11.1 and platelets of 250. Her initial BUN was 28 with a creatinine of 1.4. At bedside no history could be obtained from patient as she is demented and very hard of hearing. She is able to answer simple questions but otherwise stares stating confusion with mouth open. She clears clinically dry and there was no tenderness to palpation of her abdomen. Nephrology team was consulted because patient's creatinine has continued to worsen despite IV fluid resuscitation. Her current creatinine is 2.3 with a BUN of 35. Patient has had 700 cc of urine output in the last 24 hours and she has urostomy bag on her abdomen without any erythema or discharge or cloudy urine seen. Patient's UA showed 1+ protein, leukocyte esterase positive, WBCs 72 with 1+ bacteria and a pH of 7.5. 03/25/2025 patient currently seen in medical floor. Yesterday the CT showed that she had pneumoperitoneum. Son at bedside. Noted son agreed for comfort care. Currently on morphine drip. Patient seems to be peaceful and comfortable although when touching the abdomen she was wincing in pain. Review of Systems Review of Systems ROS Unobtainable: unobtainable due to mental status Exam Vital Signs Temp Pulse Resp BP Pulse Ox O2 Del Method O2 Flow Rate 36.6 C 113 H 20 133/84 H 97 Nasal Cannula 2 03/25/25 08:00 03/25/25 09:23 03/25/25 09:23 03/25/25 08:00 03/25/25 09:23 03/25/25 08:00 03/25/25 09:23 FiO2 2 03/25/25 08:00 Narrative Exam Elderly frail lady on morphine drip GI: Patient with significant discomfort in the abdomen Barely arousable Objective Labs 03/24/25 04:48 03/24/25 04:48 Labs: Laboratory Results - last 24 hr 03/24/25 14:21 Lactic Acid 2.1 H ABG Interpretation ABG results: 03/23/25 06:25 ABG pH 7.33 L ABG pCO2 46 ABG pO2 70 L ABG HCO3 25 ABG O2 Saturation 93 ABG Base Excess -2 Assessment & Plan Additional Assessment & Plan Additional Plan: Ms Kelly is a 74-year-old female past medical history of dementia, CVA with residual right-sided hemiparesis, type 2 diabetes, hypothyroidism, hypertension, CKD, CAD, bladder cancer status post resection and urostomy bag, seizure disorder admitted after an episode of syncope and hematemesis. #REYNOLD on CKD-- #ATN Patient is presenting with worsening renal function as her creatinine increased to 2.3 from a baseline of 1.4 despite IV fluid resuscitation Patient likely experiencing ischemic ATN as she was found to have soft blood pressures on initial presentation we are unsure how long she was with low blood pressures Patient received 2-1/2 L of D5 NS. Medical reconciliation does not show any recent changes to her medications Plan: Family requested comfort care--pneumoperitoneum #Suspected GI bleed #Seizure disorder #Acute hypoxic respiratory failure #Non-STEMI, likely type II #History of CAD, status post PCI #Left patellar subluxation #History of dementia #History of stroke #History of levothyroxine #Type 2 diabetes #Hypertension #Bladder cancer s/p resection and urostomy ?Managed as per primary team Quality - progress note Quality Measures Quality Measures: VTE prophylaxis Reason for Continued Stay Reason for Continued Stay: further monitoring
--- NOTE | 2025-03-25 14:31 | ESPR_ITS ---
Documentation for date of: 03/25/25 Subjective Subjective Interval history: Patient seen and examined at bedside. Patient lying comfortably, not in any acute distress. Patient was started on comfort care yesterday per family wishes. Patient's vitals within normal limits, currently on morphine drip, will continue. Family open to discharge to [facility] facility on comfort care measures. Exam Vital Signs Temp Pulse Resp BP Pulse Ox O2 Del Method O2 Flow Rate 97.9 F 113 H 20 133/84 H 97 Nasal Cannula 2 03/25/25 08:00 03/25/25 09:23 03/25/25 09:23 03/25/25 08:00 03/25/25 09:23 03/25/25 08:00 03/25/25 09:23 FiO2 2 03/25/25 08:00 Narrative Exam Not performed, patient on comfort measures. Objective Labs 03/24/25 04:48 03/24/25 04:48 Labs: Laboratory Results - last 24 hr 03/24/25 14:21 Lactic Acid 2.1 H ABG Interpretation ABG results: 03/23/25 06:25 ABG pH 7.33 L ABG pCO2 46 ABG pO2 70 L ABG HCO3 25 ABG O2 Saturation 93 ABG Base Excess -2 Quality Measures Quality Measures VTE prophylaxis Advance care planning discussed with:: patient and child Assessment & Plan Assessment Current Active Medications: Generic Name Dose Route Start Last Admin Trade Name Freq PRN Reason Stop Dose Admin Atropine Sulfate 2 drop 03/24/25 17:58 Atropine Sulf Op Kamala 1% 5 Ml Btl SL 04/23/25 17:57 Q4HR PRN SECRETIONS Diphenhydramine HCl 25 mg 03/24/25 17:58 Diphenhydramine Inj 50 Mg/Ml Vial IVP 04/23/25 17:57 Q6HR PRN ITCHING Morphine Sulfate 100 mls @ 1 mls/hr 03/24/25 17:58 03/24/25 18:10 Morphine Sulfate Iv Drip 100mg/100ml IV 03/29/25 17:57 1 mg/hr .Q24H PRN 1 mls/hr PAIN (COMFORT CARE) Administration Protocol 1 MG/HR Lorazepam 1 mg 03/24/25 17:58 Lorazepam 2 Mg/Ml Vial IVP 03/29/25 17:57 Q6HR PRN ANXIETY Ondansetron HCl 4 mg 03/24/25 17:58 Ondansetron Odt 4 Mg Tabrap PO 04/23/25 17:57 Q6HR PRN Nausea/Vomiting Scopolamine 1 mg 03/24/25 18:00 03/24/25 18:18 Scopolamine 1 Mg Tdsy TOP 04/23/25 17:59 1 mg Q3D CHARLES Administration Plan Assessment and plan: Summary: Ms Fisher is a 74-year-old female with a previous medical history of dementia, history of stroke with right-sided hemiparesis, type 2 diabetes, hypertension, CKD, CAD, bladder cancer s/p resection and urostomy, seizure disorder who was brought in by ambulance from [facility] due to hematemesis and syncope. Internal medicine team was consulted for suspected GI bleed and possible NSTEMI. #Severe abdominal tenderness #Pneumoperitoneum, CT suspicious findings of ischemic bowel #GI bleed #Splenic mass - Comfort measures, morphine drip - Ativan as needed - Scopolamine patch as needed - Supplemental oxygen as needed - Family open to discharge to facility on comfort measures #REYNOLD on CKD versus progression of CKD #Acute hypoxic respiratory failure # Community-acquired pneumonia #?Syncope episode #Left patellar subluxation #Non-STEMI, likely type II #Elevated troponin #History of CAD, status post PCI #Severe Hypothyroidism #Type 2 diabetes #Hypertension #Dementia #Depression #Seizure disorder #Bladder cancer s/p resection and urostomy Diet: N.p.o. Lines: Peripheral IV Code status: DNR/DNI, goals of care discussion with son Case discussed with Attending Dr. Barrios and Dr. Talamantes PGY3. Pablo Mcmahon PGY1 Disclaimer: This note was dictated by speech recognition. Minor errors in character artist may be present due to voice recognition software. ALEXANDER discussed with and supervised the [employer] internship physician who took care of this patient. I personally saw and examined the patient and discussed the assessment and plan with the entire medicine team, including my attending Dr. Sophie GILLESPIE. I agree with the assessment and plan as documented above. Patient interviewed and examined at bedside this a.m. Patient is currently on comfort care measures only. On evaluation she does not appear to be in any visible or apparent acute distress. She is resting comfortably in her hospital bed accompanied by her son. Explained to the patient not appearing eminent based off of her vitals, we may transition the patient to hospice with comfort care measures tomorrow AM. Will continue comfort care measures with morphine drip. Singh Talamantes M.D. Internal Medicine PGY-3 Attending Provider Attestation/Addendum I have examined the patient, reviewed labs and imaging findings, discussed the case with the resident(s), and reviewed entered orders. I agree with the plan of care as outlined in this note, with these additional summaries/recommendations: Patient and son seen at bedside. Patient appears comfortable. Continue comfort care measures and as needed vital sign checks. Dr. Sophie MD
[2025-03-25] MEDS: MORPHINE SULF INJ 10 MG/ML VIAL 2 MG IVP (18:29)
[2025-03-25] MEDS: RINGERS LACTATED 1000 ML 1,000 ML 50 ML IV (18:29)
[2025-03-25 20:00] VITALS: BP 147/87; PULSE 109; RESP 24; TEMP 36.1; O2SAT 94
--- NOTE | 2025-03-25 20:05 | PD.IMPROG ---
Documentation for date of: 03/25/25 Subjective Subjective Interval history: WBC count up to 18.2 Patient on comfort care and on morphine drip Exam Vital Signs Temp Pulse Resp BP Pulse Ox O2 Del Method O2 Flow Rate 97.9 F 113 H 20 133/84 H 97 Nasal Cannula 2 03/25/25 08:00 03/25/25 09:23 03/25/25 09:23 03/25/25 08:00 03/25/25 09:23 03/25/25 08:00 03/25/25 09:23 FiO2 2 03/25/25 08:00 Objective Labs 03/24/25 04:48 03/24/25 04:48 Impressions Impression: Small bowel ischemia Leukocytosis Comfort care to continue ABG Interpretation ABG results: 03/23/25 06:25 ABG pH 7.33 L ABG pCO2 46 ABG pO2 70 L ABG HCO3 25 ABG O2 Saturation 93 ABG Base Excess -2 Assessment & Plan A&P Narrative # Hematemesis Consent will be obtained for fiberoptic esophagogastroduodenoscopy with possible therapeutic intervention possible biopsy under intravenous moderate sedation scheduled for tomorrow Patient also has difficulty swallowing we will see if the patient has esophageal stricture might need dilatation THOM Other medical problems include Dementia CVA with right-sided motor weakness Diabetes mellitus type 2 Hypothyroidism CKD Coronary artery disease Bladder carcinoma status post cystectomy total and 8 urostomy Thank you very much for the opportunity to participate in care of this patient Time Spent With Patient Time: Total time spent is greater than 50% in coordination of care (as documented) at patient's floor/unit and/or counseling patient:
[2025-03-25] MEDS: Morphine IV Drip 100mg/100ml 100 ML IV (20:09)
[2025-03-26 08:00] VITALS: BP 151/50; PULSE 111; RESP 16; TEMP 36.1; O2SAT 89
[2025-03-26] MEDS: MORPHINE SULF INJ 10 MG/ML VIAL 2 MG IVP ×4 (08:56→22:07)
--- NOTE | 2025-03-26 09:45 | PC.SS ---
Follow up note: On comfort care. Physicians will meet with son at bedside to discuss d/c plan. Pt will return to [facility] upon dc.
--- NOTE | 2025-03-26 09:49 | PC.NURSE ---
New order received to increase morphine drip to 2ml/2mg/hr. Medication increased and verified with Madeleine CHAPMAN.
--- NOTE | 2025-03-26 10:56 | PC.SS ---
SS has [facility] [place] using [employer].
--- NOTE | 2025-03-26 11:51 | PD.IMPROG ---
Documentation for date of: 03/26/25 Subjective Subjective Interval history: Moved from the ICU to the floor with comfort care and on IV morphine Exam Vital Signs Temp Pulse Resp BP Pulse Ox O2 Del Method O2 Flow Rate 97.0 F 111 H 16 151/50 H 89 L Nasal Cannula 2 03/26/25 08:00 03/26/25 08:00 03/26/25 08:00 03/26/25 08:00 03/26/25 08:00 03/26/25 08:00 03/26/25 08:00 FiO2 2 03/25/25 08:00 Objective Labs 03/24/25 04:48 03/24/25 04:48 Impressions Impression: End-of-life care on comfort care with IV morphine Occult GI bleeding Continue comfort care ABG Interpretation ABG results: 03/23/25 06:25 ABG pH 7.33 L ABG pCO2 46 ABG pO2 70 L ABG HCO3 25 ABG O2 Saturation 93 ABG Base Excess -2 Assessment & Plan A&P Narrative # Hematemesis Consent will be obtained for fiberoptic esophagogastroduodenoscopy with possible therapeutic intervention possible biopsy under intravenous moderate sedation scheduled for tomorrow Patient also has difficulty swallowing we will see if the patient has esophageal stricture might need dilatation THOM Other medical problems include Dementia CVA with right-sided motor weakness Diabetes mellitus type 2 Hypothyroidism CKD Coronary artery disease Bladder carcinoma status post cystectomy total and 8 urostomy Thank you very much for the opportunity to participate in care of this patient Time Spent With Patient Time: Total time spent is greater than 50% in coordination of care (as documented) at patient's floor/unit and/or counseling patient:
[2025-03-26] MEDS: RINGERS LACTATED 1000 ML 1,000 ML 50 ML IV (13:35)
--- NOTE | 2025-03-26 14:23 | ESPR_ITS ---
Documentation for date of: 03/26/25 Subjective Subjective Interval history: Patient seen and examined at bedside. Patient lying comfortably, not in any acute distress. Patient was started on comfort care yesterday per family wishes. Patient's vitals within normal limits, currently on morphine drip, will continue. Family open to discharge to care home facility on comfort care measures. Exam Vital Signs Temp Pulse Resp BP Pulse Ox O2 Del Method O2 Flow Rate 97.0 F 111 H 16 151/50 H 89 L Nasal Cannula 2 03/26/25 08:00 03/26/25 08:00 03/26/25 08:00 03/26/25 08:00 03/26/25 08:00 03/26/25 08:00 03/26/25 08:00 FiO2 2 03/25/25 08:00 Narrative Exam Not performed, patient on comfort measures. Objective Labs 03/24/25 04:48 03/24/25 04:48 ABG Interpretation ABG results: 03/23/25 06:25 ABG pH 7.33 L ABG pCO2 46 ABG pO2 70 L ABG HCO3 25 ABG O2 Saturation 93 ABG Base Excess -2 Quality Measures Quality Measures VTE prophylaxis Advance care planning discussed with:: patient Assessment & Plan Assessment Current Active Medications: Generic Name Dose Route Start Last Admin Trade Name Freq PRN Reason Stop Dose Admin Atropine Sulfate 2 drop 03/24/25 17:58 Atropine Sulf Op Kamala 1% 5 Ml Btl SL 04/23/25 17:57 Q4HR PRN SECRETIONS Diphenhydramine HCl 25 mg 03/24/25 17:58 Diphenhydramine Inj 50 Mg/Ml Vial IVP 04/23/25 17:57 Q6HR PRN ITCHING Lactated Ringer's 1,000 mls @ 50 mls/hr 03/25/25 18:01 03/26/25 13:35 Lactated Ringers IV 04/24/25 18:00 50 mls/hr .Q20H CHARLES Administration Morphine Sulfate 100 mls @ 2 mls/hr 03/26/25 09:39 Morphine Sulfate Iv Drip 100mg/100ml IV 03/29/25 17:57 .Q24H PRN PAIN (COMFORT CARE) Protocol 2 MG/HR Lorazepam 1 mg 03/24/25 17:58 Lorazepam 2 Mg/Ml Vial IVP 03/29/25 17:57 Q6HR PRN ANXIETY Morphine Sulfate 2 mg 03/25/25 18:20 03/26/25 14:10 Morphine Sulf Inj 10 Mg/Ml Vial IVP 03/30/25 18:19 2 mg Q30M PRN Administration PAIN Ondansetron HCl 4 mg 03/24/25 17:58 Ondansetron Odt 4 Mg Tabrap PO 04/23/25 17:57 Q6HR PRN Nausea/Vomiting Scopolamine 1 mg 03/24/25 18:00 03/24/25 18:18 Scopolamine 1 Mg Tdsy TOP 04/23/25 17:59 1 mg Q3D CHARLES Administration Plan Assessment and plan: Summary: Ms Fisher is a 74-year-old female with a previous medical history of dementia, history of stroke with right-sided hemiparesis, type 2 diabetes, hypertension, CKD, CAD, bladder cancer s/p resection and urostomy, seizure disorder who was brought in by ambulance from [facility] due to hematemesis and syncope. Internal medicine team was consulted for suspected GI bleed and possible NSTEMI. #Severe abdominal tenderness #Pneumoperitoneum, CT suspicious findings of ischemic bowel #GI bleed #Splenic mass - Comfort measures, morphine drip - Ativan as needed - Scopolamine patch as needed - Supplemental oxygen as needed - Family open to discharge to facility on comfort measures #REYNOLD on CKD versus progression of CKD #Acute hypoxic respiratory failure # Community-acquired pneumonia #?Syncope episode #Left patellar subluxation #Non-STEMI, likely type II #Elevated troponin #History of CAD, status post PCI #Severe Hypothyroidism #Type 2 diabetes #Hypertension #Dementia #Depression #Seizure disorder #Bladder cancer s/p resection and urostomy Diet: N.p.o. Lines: Peripheral IV Code status: DNR/DNI Case discussed with Attending Dr. Barrios and Dr. Talamantes PGY3. Pablo Mcmahon PGY1 Disclaimer: This note was dictated by speech recognition. Minor errors in keno terminal operator may be present due to voice recognition software. ALEXANDER discussed with and supervised the internet developer physician who took care of this patient. I personally saw and examined the patient and discussed the assessment and plan with the entire medicine team, including my attending Dr. Sophie GILLESPIE. I agree with the assessment and plan as documented above. Patient interviewed and examined at bedside this a.m. Patient was accompanied by her son. Patient is currently on comfort care measures. On exam she appeared to be in some pain for which morphine was bolused. We also increased the rate of morphine drip. Spoke with son about possibility of d/c on hospice with comfort care measures. WIll broach the subject in the AM and continue in house comfort care for time being. Singh Talamantes M.D. Internal Medicine PGY-3 Attending Provider Attestation/Addendum I have examined the patient, reviewed labs and imaging findings, discussed the case with the resident(s), and reviewed entered orders. I agree with the plan of care as outlined in this note, with these additional summaries/recommendations: Patient and son seen at bedside. Patient appears comfortable. Today at bedside noted noisy breathing that is common at the end of life with terminal respiratory secretions. Given that appears imminent we will keep patient hospitalized on morphine drip and titrate to comfort. Patient's son was updated on her current status and he is in agreement with her current management. All questions answered to satisfaction. Dr. Sophie MD
[2025-03-26 14:50] VITALS: PULSE 103; RESP 20; O2SAT 94
[2025-03-26 20:00] VITALS: BP 125/87; PULSE 102; RESP 19; TEMP 36.9; O2SAT 92
--- NOTE | 2025-03-26 22:00 | PC.NURSE ---
PATIENTS FAMILY AT BEDSIDE, WENT OVER PLAN OF CARE WITH ASHLEY, FAMILY STATES THEY WILL BE STAYING THE NIGHT WITH THE PATIENT NO OTHER CONCERNS OR COMPLAINTS FROM FAMILY AT THIS TIME
[2025-03-26 22:55] VITALS: BP 139/73; PULSE 105; RESP 20; TEMP 36.6; O2SAT 91
[2025-03-27] MEDS: MORPHINE SULF INJ 10 MG/ML VIAL 2 MG IVP ×3 (03:27→10:24)
[2025-03-27 06:00] VITALS: BMI 25.1
--- NOTE | 2025-03-27 07:44 | ECHO_ITS ---
Transthoracic Echo Report Ht (in): 68 Wt (lb): 165 Exam Location: Portable Status: Inpatient Fuel Injection Servicer: ANGELA Sanz^^^^ Indications: Procedure Performed: BP: / HR: MEASUREMENTS (Male / Female) Normal Values 2D ECHO LV Diastolic Diameter PLAX 4.0 cm 4.2 - 5.9 / 3.9 - 5.3 cm LV Systolic Diameter PLAX 2.7 cm IVS Diastolic Thickness 1.3 cm 0.6 - 1.0 / 0.6 - 0.9 cm LVPW Diastolic Thickness 1.0 cm 0.6 - 1.0 / 0.6 - 0.9 cm LV Relative Wall Thickness 0.6 LVOT Diameter 1.5 cm Aortic Root Diameter 3.4 cm LA Systolic Diameter LX 2.7 cm 3.0 - 4.0 / 2.7 - 3.8 cm DOPPLER MV Area PHT 2.4 cm? Mitral E Point Velocity 42.8 cm/s Mitral A Point Velocity 50.7 cm/s Mitral E to A Ratio 0.8 TR Peak Velocity 255.2 cm/s TR Peak Gradient 26.1 mmHg PV Peak Velocity 135.0 cm/s PV Peak Gradient 7.3 mmHg RVOT Peak Velocity 43.6 cm/s FINDINGS Left Ventricle Normal left ventricular size, wall thickness, systolic function with no obvious regional wall motion abnormalities. The left ventricular ejection fraction is normal, estimated at 60-65%. There is a flattened septum in diastole consistent with right ventricle volume overload. Right Ventricle The right ventricular size is mildy increased. Estimated right ventricular systolic pressure, 30 mmHg. Left Atrium The left atrium is normal by two-dimensional, color flow and Doppler imaging with no structural abnormalities, no thrombus formation present. Right Atrium The right atrium is normal by two-dimensional imaging, color flow and Doppler imaging with no structural abnormalities, no thrombus formation present. Atrial Septum The interatrial septum appears normal with no evidence of a shunt. Aorta The aorta is normal by two-dimensional, color flow and Doppler interrogation. Mitral Valve Mild mitral regurgitation. Mild mitral annular calcification. Mild thickening of the mitral valve leaflets. Aortic Valve The aortic valve is not well visualized. Tricuspid Valve There is mild tricuspid valve regurgitation. Pulmonic Valve The pulmonic valve is not well visualized. There is no significant pulmonic valve regurgitation. Vessels The pulmonary artery appears normal. The inferior vena cava pulmonary and hepatic veins appear normal. Pericardium There is a small pericardial effusion. CONCLUSIONS indication: syncope LV appears normal with EF 60-65%. RV appears dilated with RVSP 30 mmHg. Mild MR & MAC Mild TR Small pericardial effusion Aneudy Gutiérrez (Electronically Signed) Final Date: 27 Mar 2025 10:07
[2025-03-27 08:00] VITALS: BP 118/71; PULSE 99; RESP 19; TEMP 36; O2SAT 91
[2025-03-27] MEDS: Morphine IV Drip 100mg/100ml 100 ML IV ×2 (09:12→11:21)
[2025-03-27] MEDS: RINGERS LACTATED 1000 ML 1,000 ML 50 ML IV (09:17)
--- NOTE | 2025-03-27 13:03 | PD.RESPRO ---
Documentation for date of: 03/27/25 Subjective Subjective Interval history: Patient was seen and examined at bedside this AM. Her family members were present at bedside No acute exents overnight. Patient remains A&O x 0 with agonal respiration. Morphine infusion currently ongoing at 3 Mg per hour, will titrate as necessary Patient is medically cleared for discharge to SNF with comfort care, however will keep patient for 1 more day as per family's wishes and due to high possibility of deterioration during transfer. Exam Vital Signs Temp Pulse Resp BP Pulse Ox O2 Del Method O2 Flow Rate 96.8 F 99 19 118/71 91 L Nasal Cannula 2 03/27/25 08:00 03/27/25 08:00 03/27/25 08:00 03/27/25 08:00 03/27/25 08:00 03/27/25 08:00 03/27/25 08:00 FiO2 2 03/25/25 08:00 Narrative Exam Patient eyes are open spontaneously, agonal breathing. A&O x 0 Objective Labs 03/24/25 04:48 03/24/25 04:48 ABG Interpretation ABG results: 03/23/25 06:25 ABG pH 7.33 L ABG pCO2 46 ABG pO2 70 L ABG HCO3 25 ABG O2 Saturation 93 ABG Base Excess -2 Quality Measures Quality Measures VTE prophylaxis Advance care planning discussed with:: child Assessment & Plan Assessment Current Active Medications: Generic Name Dose Route Start Last Admin Trade Name Freq PRN Reason Stop Dose Admin Atropine Sulfate 2 drop 03/24/25 17:58 Atropine Sulf Op Kamala 1% 5 Ml Btl SL 04/23/25 17:57 Q4HR PRN SECRETIONS Diphenhydramine HCl 25 mg 03/24/25 17:58 Diphenhydramine Inj 50 Mg/Ml Vial IVP 04/23/25 17:57 Q6HR PRN ITCHING Lactated Ringer's 1,000 mls @ 50 mls/hr 03/25/25 18:01 03/27/25 09:17 Lactated Ringers IV 04/24/25 18:00 50 mls/hr .Q20H CHARLES Administration Morphine Sulfate 100 mls @ 2 mls/hr 03/27/25 11:07 03/27/25 11:21 Morphine Sulfate Iv Drip 100mg/100ml IV 04/01/25 11:06 3 mg/hr .Q24H PRN 3 mls/hr PAIN (COMFORT CARE) Administration Protocol 2 MG/HR Lorazepam 1 mg 03/24/25 17:58 Lorazepam 2 Mg/Ml Vial IVP 03/29/25 17:57 Q6HR PRN ANXIETY Morphine Sulfate 2 mg 03/26/25 21:58 03/27/25 10:24 Morphine Sulf Inj 10 Mg/Ml Vial IVP 03/31/25 21:57 2 mg Q30MIN PRN Administration PAIN Ondansetron HCl 4 mg 03/24/25 17:58 Ondansetron Odt 4 Mg Tabrap PO 04/23/25 17:57 Q6HR PRN Nausea/Vomiting Scopolamine 1 mg 03/24/25 18:00 03/24/25 18:18 Scopolamine 1 Mg Tdsy TOP 04/23/25 17:59 1 mg Q3D CHARLES Administration Plan Assessment and plan: Summary: Ms Fisher is a 74-year-old female with a previous medical history of dementia, history of stroke with right-sided hemiparesis, type 2 diabetes, hypertension, CKD, CAD, bladder cancer s/p resection and urostomy, seizure disorder who was brought in by ambulance from [facility] due to hematemesis and syncope. Internal medicine team was consulted for suspected GI bleed and possible NSTEMI. #Severe abdominal tenderness #Pneumoperitoneum, CT suspicious findings of ischemic bowel #GI bleed #Splenic mass - Comfort measures, morphine drip. Titrate as necessary - Ativan as needed - Scopolamine patch as needed - Supplemental oxygen as needed #REYNOLD on CKD versus progression of CKD #Acute hypoxic respiratory failure # Community-acquired pneumonia #?Syncope episode #Left patellar subluxation #Non-STEMI, likely type II #Elevated troponin #History of CAD, status post PCI #Severe Hypothyroidism #Type 2 diabetes #Hypertension #Dementia #Depression #Seizure disorder #Bladder cancer s/p resection and urostomy Diet: N.p.o. Lines: Peripheral IV Code status: DNR/DNI Plan of care discussed with Attending Dr. Sophie Raza MD PGY 1 Attending Provider Attestation/Addendum I have examined the patient, reviewed labs and imaging findings, discussed the case with the resident(s), and reviewed entered orders. I agree with the plan of care as outlined in this note, with these additional summaries/recommendations: Patient and family seen at bedside. She appeared mildly uncomfortable and we will increase morphine drip rate today. unfortunately still appears imminent and we will defer transfer at this time. Continue comfort care measures. Family was allowed time to ask questions and all questions answered to satisfaction. Dr. Sophie MD
[2025-03-27] MEDS: LORazepam 2 MG/ML VIAL 1 MG IVP (15:18)
--- NOTE | 2025-03-27 15:22 | PC.SS ---
Rounding note: patient on comfort care. Per medical team, patient to remain inhouse due to high possibility of deterioration during transfer.
[2025-03-27] MEDS: SCOPOLAMINE 1 MG TDSY TOP (18:03)
--- NOTE | 2025-03-27 19:26 | PD.IMPROG ---
Documentation for date of: 03/27/25 Subjective Subjective Interval history: Met with the family in the room Patient on comfort care Exam Vital Signs Temp Pulse Resp BP Pulse Ox O2 Del Method O2 Flow Rate 96.8 F 99 19 118/71 91 L Nasal Cannula 2 03/27/25 08:00 03/27/25 08:00 03/27/25 08:00 03/27/25 08:00 03/27/25 08:00 03/27/25 08:00 03/27/25 08:00 FiO2 2 03/25/25 08:00 Objective Labs 03/24/25 04:48 03/24/25 04:48 Impressions Impression: # End-of-life care Continue supportive care ABG Interpretation ABG results: 03/23/25 06:25 ABG pH 7.33 L ABG pCO2 46 ABG pO2 70 L ABG HCO3 25 ABG O2 Saturation 93 ABG Base Excess -2 Assessment & Plan A&P Narrative # Hematemesis Consent will be obtained for fiberoptic esophagogastroduodenoscopy with possible therapeutic intervention possible biopsy under intravenous moderate sedation scheduled for tomorrow Patient also has difficulty swallowing we will see if the patient has esophageal stricture might need dilatation THOM Other medical problems include Dementia CVA with right-sided motor weakness Diabetes mellitus type 2 Hypothyroidism CKD Coronary artery disease Bladder carcinoma status post cystectomy total and 8 urostomy Thank you very much for the opportunity to participate in care of this patient Time Spent With Patient Time: Total time spent is greater than 50% in coordination of care (as documented) at patient's floor/unit and/or counseling patient:
[2025-03-27 20:00] VITALS: BP 101/37; PULSE 70; RESP 20; TEMP 35.5; O2SAT 90
--- NOTE | 2025-03-27 21:00 | PC.NURSE ---
Pt family out of room stated, I think she passed, (pt comfort care on morphine drip) into room to assess, no chest rise noted, lung sounds absent, pulse not palpable or auscultated, no obtainable blood pressure, pupils fixed dilated. Spoke with family in regards to what is next, family verbalized understanding. Contacted Dr. Aramis MD to come in to pronounce.
--- NOTE | 2025-03-27 21:07 | PC.NURSE ---
Dr. Self in to pronounce pt.
--- NOTE | 2025-03-27 21:11 | PD.DPN ---
Documentation for date of: 03/27/25 Pronouncement Note Date and Time of Date of : 03/27/25 Time of : 21:07 PCOD Preliminary cause of : Cardiopulmonary arrest Summary Additional details: Time of : 03/27/2025, 9:07PM Attending: Dr. Fuentes Cause of : cardiopulmonary arrest Nurse called stating that patient on comfort care had passed. No pulses were present, no heard sounds auscultated, no pupillary reflex. Family was notified at the time of by Dr. Self and condolences were given. Additional Data Confirmation of : no pulse, no heart sounds and pupils fixed and dilated Family: at bedside Attending/PCP notified?: Yes Attending physician: Rhianna Martinez MD
--- NOTE | 2025-03-27 21:14 | PC.NURSE ---
Son, Artemio, at bedside, would like to know if any paper work needs to be filled out, Discussed with son release of remains and home choice-[facility], per son no other family to come and when ready can release.
--- NOTE | 2025-03-27 21:20 | PC.NURSE ---
Contacted donor network, spoke with Jenn Hopson, OPA number [phone], pt possible candidate for tissue donation will call back within hour.
--- NOTE | 2025-03-27 21:51 | PC.NURSE ---
Contacted [facility], will follow up with SHANT
--- NOTE | 2025-03-27 23:12 | PC.NURSE ---
wasted 60 mls of morphine Iv with ADELA Mcneil
--- NOTE | 2025-03-28 07:39 | DES_ITS ---
Documentation for date of: 03/28/25 Summary Date and Time Date of admission: 03/23/25 05:34 Date of : 03/27/25 Time of : 21:07 Summary Hospital Course: Ms Fisher is a 74-year-old female with a previous medical history of dementia, history of stroke with right-sided hemiparesis, type 2 diabetes, hypertension, CKD, CAD, bladder cancer s/p resection and urostomy, seizure disorder who was brought in by ambulance from [facility] due to hematemesis and syncope. Internal medicine team was consulted for suspected GI bleed and possible NSTEMI. CT scan findings were suggestive of pneumoperitoneum and ischemic bowel. After extensive discussion with the family, comfort measures were initiated. On 03/27/2025 at 9: 0 7 PM patient from cardiopulmonary arrest. Discharge diagnoses: 1. Cardiopulmonary arrest 2. Pneumoperitoneum 3. GI bleed 4. Splenic mass 5. REYNOLD on CKD 6. Acute hypoxic respiratory failure 7. Non-STEMI type II 8. Hypothyroidism 9. Ywk-sithhmd-huvqmnctt diabetes mellitus type 2 10. Primary hypertension 11. Dementia 12. Seizure disorder 13. Bladder cancer s/p resection and urostomy Discharge plan: 1. Release body to home Additional Data Confirmation of as documented by pronouncing clinician: no pulse, no respirations, no heart sounds and pupils fixed and dilated Family: at bedside Attending/PCP notified?: Yes Attending physician: Lio Barrios MD Was code activated?: No Autopsy requested?: No license registration examiner notified?: No Organ bank notified?: No Advance directives: No Visit Providers Provider Primary care physician: Татьяна Hubbard MD Consults: 03/23/25 05:43 Consult to Gastroenterology Routine Comment: upper GI bleed Consulting Provider: Alexsander Chacon 03/23/25 15:40 Referral Wound Care Routine Comment: 03/24/25 07:54 Consult to Nephrology Routine Comment: REYNOLD Consulting Provider: Alejandra Mederos 03/24/25 14:22 Consult to General Surgery Stat Comment: Ischemic Bowel Consulting Provider: Deana Michelle 03/24/25 15:13 Referral Nutritional Services Routine Comment: wounds Diagnosis PCOD Cause of : Cardiopulmonary arrest Discharge Plan Plan Patient Disposition: Patient condition on transfer: Stable Prescriptions/Referrals Referrals: Татьяна Hubbard MD [Primary Care Provider] - Patient/Caregiver Discharge Instructions Print Language: Malawian
== END 2025-03-27 21:07 | disposition expired | DRG 393 ==
LOC: SERX 03-23 06:26 → SERHOLD 03-23 06:53 → S3NX 03-24 05:59 → S2NX 03-24 16:41 → S3SX 03-24 21:06
PROVIDERS: Student in an Organized Health Care Education/Training Program; Admitting Provider Student in an Organized Health Care Education/Training Program; Emergency Provider Emergency Medicine; PCP Internal Medicine; Visit Provider Student in an Organized Health Care Education/Training Program
DX: K66.8 Other specified disorders of peritoneum (principal); I21.A1 Myocardial infarction type 2; N17.0 Acute kidney failure with tubular necrosis; J96.01 Acute respiratory failure with hypoxia; J18.9 Pneumonia, unspecified organism; K92.2 Gastrointestinal hemorrhage, unspecified; F03.93 Unspecified dementia, unspecified severity, with mood disturbance; I69.351 Hemiplegia and hemiparesis following cerebral infarction affecting right dominant side; K55.9 Vascular disorder of intestine, unspecified; N13.30 Unspecified hydronephrosis; K92.0 Hematemesis; E03.9 Hypothyroidism, unspecified; F32.A Depression, unspecified; I25.10 Atherosclerotic heart disease of native coronary artery without angina pectoris; E11.22 Type 2 diabetes mellitus with diabetic chronic kidney disease; D63.1 Anemia in chronic kidney disease; I69.320 Aphasia following cerebral infarction; E86.0 Dehydration; I12.9 Hypertensive chronic kidney disease with stage 1 through stage 4 chronic kidney disease, or unspecified chronic kidney disease; H91.90 Unspecified hearing loss, unspecified ear; G89.29 Other chronic pain; R13.10 Dysphagia, unspecified; N18.9 Chronic kidney disease, unspecified; Z85.51 Personal history of malignant neoplasm of bladder; Z90.6 Acquired absence of other parts of urinary tract; G40.909 Epilepsy, unspecified, not intractable, without status epilepticus; Z93.6 Other artificial openings of urinary tract status; S83.012A Lateral subluxation of left patella, initial encounter; Z66 Do not resuscitate; R16.1 Splenomegaly, not elsewhere classified; Z51.5 Encounter for palliative care; Z79.890 Hormone replacement therapy; Z79.899 Other long term (current) drug therapy; Z87.442 Personal history of urinary calculi; Z53.29 Procedure and treatment not carried out because of patient's decision for other reasons; Z79.84 Long term (current) use of oral hypoglycemic drugs; E78.00 Pure hypercholesterolemia, unspecified; Z87.891 Personal history of nicotine dependence; Z98.61 Coronary angioplasty status; I46.8 Cardiac arrest due to other underlying condition
CPT/HCPCS: 36415; 36600; 71045; 73552; 73560; 74176; 76770; 80053; 81001; 82043; 82436; 82570; 82803; 83605; 83735; 83970; 84100; 84133; 84300; 84439; 84443; 84484; 85025; 85610; 85730; 87081; 93005; 93225; 93306; 96365; 96368; 96375; 99285; J0456; J0696; J1165; J1171; J1815; J1953; J2060; J2270; J2405; J2470; J2543; J7040; J7042; J7050; J7120; A9270